=== PATIENT | female | born 1970 | race Caucasian/White ===

== ENCOUNTER 2019-02-08 08:19 | Outpatient (RCR) | payer BC, SELFPAY ==
--- NOTE | 2019-02-08 07:53 | PTOPEVAL ---
Thank you for referring this patient to [facility]. Please review, sign, date and return this plan of care BINDU. I agree with and certify that the following plan of care is medically necessary. Referring Physician Date Admitting Provider: Attending Provider: Nancy Art, Referring Provider: *KARMEN Outpatient Evaluation Start: 02/08/19 07:05 Freq: Status: Active Protocol: Document 02/08/19 07:05 J (Rec: 02/08/19 07:37 [facility] [id number]) Therapy Assessment Status Assessment Status Assessment Status Evaluation Outpatient Past Medical History Cardiovascular History Hx Hypertension Yes Musculoskeletal History Hx Rheumatoid Arthritis Yes Evaluation Information Problem Diagnosis patellafemoral syndrome L knee Onset 01/10/19 Subjective Information patient reports she has been Query Text:As Reported By Patient/ having pain fora bout 2 months Family . she reports no injury. she reports she began hearing a noise in the L knee while walking at work. she reports initially she had no pain, but has gradual developed pain along with popping in the L knee. she reports she has had an x-ray of the L knee. no MRI or injection. she reports she has increased pain and popping with walking. Prior Level of Function Comments Additional Prior Level of Function prior to a few months ago, no Comments popping or pain in the L knee. Pain Assessment Timing of Pain Assessment Timing of Pain Assessment Assessment Pain Scale Pain Scale Used Numeric (1 - 10) Self Report Pain Assessment Left Knee(s) Reported Pain Level 1 Pain Description With Movement Pain Frequency Acute,Continuous Current Pain Intensity 1 Lowest Pain Intensity 1 Greatest Pain Intensity 3 Pain Level Goal 0 Pain Aggravating Factors Walking Pain Score Pain Score 1: Self Report Lower Extremity Range of Motion General Lower Extremity Range of Motion Gross Lower Extremity Range of Motion crepitus noted in the Comments bilateral knees with arom flexiona nd extension sitting EOB. Hip Range of Motion Right Hip Medial Rotation - Active 45 Hip Lateral Rotation - Active 45 Left Hip Medial Rotation - Active 30 Hip Lateral Rotation - Active
--- NOTE | 2019-05-07 17:17 | PCPTNOTE ---
05/07/19- pt has not been to therapy since 02/21/19. pt cancelled apt after this date secondary to illness, but has not returned any calls since to reschedule. pt will be discharged on this date per evaluating therapist.-CINTHIA
== END 2019-02-21 08:54 | disposition home or self-care (01) ==
LOC: CHSPT 08:19
PROVIDERS: Visit Provider Internal Medicine
DX: M22.2X2 Patellofemoral disorders, left knee (principal); M62.9 Disorder of muscle, unspecified
CPT/HCPCS: 97014; 97110; 97161; G0283

== ENCOUNTER 2019-11-29 14:06 | Outpatient (CLI) | payer BC, SELFPAY ==
[2019-11-30 13:34] LABS: SARS-CoV-2 RNA PCR Negative
== END 2019-11-29 14:07 | disposition home or self-care (01) ==
PROVIDERS: PCP Internal Medicine; Visit Provider Internal Medicine
DX: R06.02 Shortness of breath (principal); R05 Cough; Z20.828 Contact with and (suspected) exposure to other viral communicable diseases
CPT/HCPCS: 87635; C9803; U0003

== ENCOUNTER 2020-03-04 10:29 | Outpatient (CLI) | payer BC, SELFPAY ==
--- NOTE | 2020-04-02 14:34 | P.PCNHOL_ITS ---
Holter/Event Monitor Holter/Event Monitor Date of procedure: 03/04/20 Procedure Type: Event monitor Indications: TIA Conclusion: 1. 17 days event monitor between 03/04/20-04/02/20. There are 17 tr ansmissions available for analysis. 2. Underlying rhythm is sinus rhythm. HR range 50-125 bpm; average HR 74 bpm. 3. There are occasional premature supraventricular complexes with total burden of <1%. No supraventricular tachycardia. 4. There are occasional premature ventricular complexes with total burden of 1%. No ventricular tachycardia. 5. No significant pauses greater than 2 seconds. 6. Patient reports one episode of symptoms of symptom other than listed which demonstrate sinus rhythm at 70 bpm.
== END 2020-03-04 10:30 | disposition home or self-care (01) ==
LOC: CHSLAB 10:31 → CHSCARD 10:32
PROVIDERS: PCP Internal Medicine; Visit Provider Internal Medicine
DX: G45.9 Transient cerebral ischemic attack, unspecified (principal)
CPT/HCPCS: 93270

== ENCOUNTER 2020-06-16 13:59 | Outpatient (CLI) | payer BC, SELFPAY ==
[2020-06-16 14:24] VITALS: BP 150/85; PULSE 80; RESP 14; TEMP 36.6; O2SAT 98
[2020-06-16 14:25] VITALS: BMI 35.5
--- NOTE | 2020-06-16 16:09 | PC.NURSE ---
Patient tolerated #1 of 4 weekly solumedrol IV infusions. Medication education given. No concerns voiced. Safe exit of hospital. Will return next Monday @ 0800.
== END 2020-06-16 14:00 | disposition home or self-care (01) ==
LOC: CHSTREATRM 14:02
PROVIDERS: PCP Internal Medicine; Visit Provider Internal Medicine Rheumatology
DX: M05.742 Rheumatoid arthritis with rheumatoid factor of left hand without organ or systems involvement (principal)
CPT/HCPCS: 96365; 96366; J2930; J7050

== ENCOUNTER 2020-06-23 07:58 | Outpatient (CLI) | payer BC, SELFPAY ==
[2020-06-23 08:15] VITALS: BP 135/73; PULSE 68; RESP 14; TEMP 36.3; O2SAT 98
--- NOTE | 2020-06-23 10:16 | PC.NURSE ---
Patient tolerated #2 of 4 IV solumedrol weekly IV infusion well. No concerns voiced. Safe exit of hospital. Will return next Monday.
== END 2020-06-23 07:59 | disposition home or self-care (01) ==
PROVIDERS: PCP Internal Medicine; Visit Provider Internal Medicine Rheumatology
DX: M05.742 Rheumatoid arthritis with rheumatoid factor of left hand without organ or systems involvement (principal)
CPT/HCPCS: 96365; 96366; J2930; J7050

== ENCOUNTER 2020-06-30 08:02 | Outpatient (CLI) | payer BC, SELFPAY ==
[2020-06-30 08:27] VITALS: BP 130/72; PULSE 72; RESP 14; O2SAT 97
--- NOTE | 2020-06-30 10:42 | PC.NURSE ---
Patient tolerated #3 of 4 IV Solu medrol infusion. Reports likes it to run over 2 hours. No other concerns voiced. Safe exit of hospital. Will return next . July 07, 2020.
== END 2020-06-30 08:03 | disposition home or self-care (01) ==
LOC: CHSTREATRM 08:04
PROVIDERS: PCP Internal Medicine; Visit Provider Internal Medicine Rheumatology
DX: M05.742 Rheumatoid arthritis with rheumatoid factor of left hand without organ or systems involvement (principal)
CPT/HCPCS: 96365; 96366; J2930; J7050

== ENCOUNTER 2020-07-07 08:02 | Outpatient (CLI) | payer BC, SELFPAY ==
[2020-07-07 08:15] VITALS: BP 150/81; PULSE 80; RESP 18; O2SAT 97
--- NOTE | 2020-07-07 10:07 | PC.NURSE ---
Patient tolerated #4 of 4 IV Solumedrol infusion well. No concerns voiced. Safe exit of hospital.
== END 2020-07-07 08:03 | disposition home or self-care (01) ==
LOC: CHSTREATRM 08:04
PROVIDERS: PCP Internal Medicine; Visit Provider Internal Medicine Rheumatology
DX: M05.742 Rheumatoid arthritis with rheumatoid factor of left hand without organ or systems involvement (principal)
CPT/HCPCS: 96365; 96366; J2930; J7050

== ENCOUNTER 2020-09-24 10:28 | Outpatient (CLI) | payer BC, SELFPAY ==
[2020-09-24 12:23] LABS: SARS-CoV-2 RNA PCR Negative (Negative)
== END 2020-09-24 10:29 | disposition home or self-care (01) ==
PROVIDERS: PCP Internal Medicine; Visit Provider Internal Medicine
DX: J06.9 Acute upper respiratory infection, unspecified (principal); Z20.822 Contact with and (suspected) exposure to COVID-19
CPT/HCPCS: C9803; U0003; U0005

== ENCOUNTER 2020-10-23 10:30 | Outpatient (CLI) | payer BC, SELFPAY ==
--- NOTE | ~2020-10-23 | XR_ITS ---
EXAMINATION: XR chest 2V 10/23/2020 11:34 INDICATION: Cough and shortness of breath PROCEDURE: 2 view chest COMPARISON: 04/20/2015 FINDINGS: The lungs are clear. The cardiomediastinal silhouette is within normal limits. There are no pleural effusions. There is no pneumothorax suspected. IMPRESSION: 1: NO ACUTE CARDIOPULMONARY DISEASE. Reviewed, dictated and finalized at location A.
[2020-10-23 11:45] LABS: Basophils Absolute Auto 0.11 K/mm3 (0.00-0.10); Eosinophils Absolute Auto 0.41 K/mm3 (0.02-0.50); Eosinophils Percent Auto 3.6 % (1.0-6.0); Hematocrit 40.1 % (35.0-49.0); Hemoglobin 13.5 g/dL (12.0-15.0); Immature Granulocyte Absolute 0.09 K/mm3 (0.00-0.00); Immature Granulocyte Percent A 0.8 % (0.0-0.0); Lymphocytes Absolute Auto 2.03 K/mm3 (1.10-4.50); Lymphocytes Percent Auto 17.9 % (18.0-42.0); Mean Corpuscular HGB Conc 33.7 g/dL (32.0-36.0); Mean Corpuscular Hemoglobin 29.8 pg (27.0-31.0); Mean Corpuscular Volume 88.5 fL (78.0-102.0); Mean Platelet Volume 9.9 fl (9.2-11.8); Monocytes Absolute Auto 0.72 K/mm3 (0.10-0.90); Monocytes Percent Auto 6.3 % (2.0-11.0); Neutrophils Percent Auto 70.4 % (50.0-70.0); Platelet Count Result 344 K/mm3 (150-420); Red Blood Count 4.53 M/mm3 (4.20-5.40); Red Cell Distribution Width 12.2 % (11.6-14.4); White Blood Count 11.3 K/mm3 (4.8-10.8)
[2020-10-23 11:46] LABS: Add Urine Microscopic? NO; Appearance Urine Clear (Clear); Bilirubin Urine Negative (Negative); Blood Urine Negative (Negative); Color Urine Light Yellow (Yellow); Glucose Urine UA Negative (Negative); Ketones Urine Negative (Negative); Leukocyte Esterase Ur Negative (Negative); Nitrate Urine Negative (Negative); Protein Urine Negative (Negative); Specific Grav Ur >= 1.030 (1.010-1.020); Urobilinogen Urine 0.2 mg/dL (0.2-1.0); pH Urine 5.5 (5.0-8.0)
[2020-10-23 12:03] LABS: Alanine Aminotransferase 25 U/L (14-59); Albumin Level 3.5 g/dL (3.4-5.0); Alkaline Phosphatase 118 U/L (46-116); Anion Gap 8 mmol/L (8-16); Aspartate Amino Transferase 10 U/L (15-37); Bilirubin,Total 0.4 mg/dL (0.00-1.00); Blood Urea Nitrogen 26 mg/dL (7-18); Carbon Dioxide 30 mmol/L (21-32); Chloride 103 mmol/L (98-108); Estimated Glomerular Filt Rate 45; Glucose 107 mg/dL (70-99); Osmolality Calculated 296 mOsm/kg (285-295); Potassium 3.8 mmol/L (3.5-5.1); Sodium 141 mmol/L (136-145); Total Protein 7.2 g/dL (6.4-8.2)
[2020-10-23 12:39] LABS: SARS-CoV-2 RNA PCR Negative (Negative)
== END 2020-10-23 10:31 | disposition home or self-care (01) ==
LOC: CHSLAB 10:32
PROVIDERS: PCP Internal Medicine; Visit Provider Nurse Practitioner Family
DX: D72.829 Elevated white blood cell count, unspecified (principal); R05 Cough; R06.02 Shortness of breath; Z20.822 Contact with and (suspected) exposure to COVID-19
CPT/HCPCS: 36415; 71046; 80053; 81003; 85025; 85380; 87086; C9803; U0003; U0005

== ENCOUNTER 2020-11-13 15:49 | Outpatient (CLI) | payer BC, SELFPAY ==
--- NOTE | ~2020-11-13 | CT_ITS ---
EXAMINATION: CT sinus wo con DATE: 11/13/2020 16:27 INDICATION: Left orbital and cheek pain and swelling since 11/09/2020. Chronic sinusitis. TECHNIQUE: Computed tomography (CT) of the paranasal sinuses was performed without contrast. Iterativ e reconstruction technique was employed. Exam dose: 295.93 mGy-cm total exam DLP. COMPARISON: None FINDINGS: There is prominent rightward deviation of the nasal septum. There is prominent soft tissue swelling of the middle and inferior nasal turbinates bilaterally. There is intralamellar cell of both middle nasal turbinates There are bilateral maxillary sinus septations and Danica cells. The ostiomeatal units are patent. There is normal aeration of the frontal sinuses, ethmoid air cells as well as maxillary and sphenoid sinuses. The mastoid air cells are normally developed and aerated. Middle and inner ear apparatus appear dante l. IMPRESSION: Prominent rightward deviation of nasal septum Soft tissue swelling of the nasal turbinates and intralamellar cell of both middle nasal turbinates Bilateral maxillary sinus septations and Danica cells Patent paranasal sinuses, ostiomeatal units and mastoid air cells Reviewed, dictated and finalized at Location A. Reviewed, dictated and finalized at location A. IMPRESSION: Prominent rightward deviation of nasal septum Soft tissue swelling of the nasal turbinates and intralamellar cell of both mid dle nasal turbinates Bilateral maxillary sinus septations and Danica cells Patent paranasal sinuses, ostiomeatal units and mastoid air cells
== END 2020-11-13 15:50 | disposition home or self-care (01) ==
LOC: CHSIMG 15:52
PROVIDERS: PCP Internal Medicine; Visit Provider Internal Medicine
DX: J32.9 Chronic sinusitis, unspecified (principal)
CPT/HCPCS: 70486

== ENCOUNTER 2020-12-02 17:05 | Outpatient (CLI) | payer BC, SELFPAY ==
--- NOTE | ~2020-12-02 | XR_ITS ---
EXAMINATION: XR chest 2V 12/02/2020 17:29 INDICATION: Cough for one month PROCEDURE: 2 view chest COMPARISON: Comparison to multiple prior studies sequentially, with oldest reviewed study dated 03/07. FINDINGS: The lungs are clear. The cardiomediastinal silhouette is within normal limits. There are no pleural effusions. There is no pneumothorax suspected. IMPRESSION: 1: NO ACUTE CARDIOPULMONARY DISEASE. Reviewed, dictated and finalized at location A.
[2020-12-02 17:20] LABS: Hematocrit 37.8 % (35.0-49.0); Hemoglobin 12.9 g/dL (12.0-15.0); Mean Corpuscular HGB Conc 34.1 g/dL (32.0-36.0); Mean Corpuscular Hemoglobin 29.3 pg (27.0-31.0); Mean Corpuscular Volume 85.9 fL (78.0-102.0); Mean Platelet Volume 9.6 fl (9.2-11.8); Platelet Count Result 382 K/mm3 (150-420); Red Cell Distribution Width 12.7 % (11.6-14.4)
[2020-12-02 17:40] LABS: White Blood Count 20.5 K/mm3 (4.8-10.8)
[2020-12-02 17:51] LABS: Band Neutrophils Percent 0 % (0-6); Basophils Absolute Manual 0.41 K/mm3 (0-0.1); Basophils Percent Manual 2 % (0-1); Eosinophils Percent Manual 1 % (1-6); Lymphocytes Absolute Manual 4.51 K/mm3 (1.1-4.5); Lymphocytes Percent Manual 22 % (18-44); Monocytes Absolute Manual 1.84 K/mm3 (0.1-0.90); Monocytes Percent Manual 9 % (3-9); Neutrophils Absolute Manual 13.53 K/mm3 (1.7-7.2); Neutrophils Percent Manual 66 % (46-73); Platelet Estimate Adequate (Adequate)
== END 2020-12-02 17:06 | disposition home or self-care (01) ==
LOC: CHSLAB 17:08
PROVIDERS: PCP Internal Medicine; Visit Provider Internal Medicine
DX: R05.9 Cough, unspecified (principal); R09.3 Abnormal sputum
CPT/HCPCS: 36415; 71046; 85025

== ENCOUNTER 2020-12-07 10:23 | Outpatient (CLI) | payer BC, SELFPAY | END 2020-12-07 10:24 | disposition home or self-care (01) | LOC: CHSCARD 10:27 | PROVIDERS: PCP Internal Medicine; Visit Provider Internal Medicine | DX: R05.9 Cough, unspecified (principal) | CPT/HCPCS: 94060; 94726; 94729; 95012 ==

== ENCOUNTER 2021-02-08 12:55 | Outpatient (CLI) | payer BC, SELFPAY ==
--- NOTE | 2021-02-08 13:00 | PC.NURSE ---
Pt to room 227 amb. Infusion plan of care explained. Consent read and signed. Pt has no questions or complaints. Oriented to room. Call carmona in reach. Reminded to call with needs.
[2021-02-08] MEDS: ACETAMINOPHEN 325 MG TABLET 650 MG PO (13:34)
[2021-02-08] MEDS: FAMOTIDINE 20 MG TABLET PO (13:35)
[2021-02-08] MEDS: diphenhydrAMINE HCl CAP 25 MG CAPSULE PO (13:35)
--- NOTE | 2021-02-08 14:59 | PC.NURSE ---
Pt has no complaints. Discharged to home per self.
== END 2021-02-08 12:56 | disposition home or self-care (01) ==
LOC: CHSLAB 12:58 → CHSTREATRM 13:13
PROVIDERS: PCP Internal Medicine; Visit Provider Internal Medicine
DX: U07.1 COVID-19 (principal)
CPT/HCPCS: A9270; M0245; Q0245

== ENCOUNTER 2021-06-10 11:00 | Outpatient (RCR) | payer BC, SELFPAY ==
[2021-06-10 11:07] VITALS: BMI 38.6
[2021-06-10 11:14] VITALS: BMI 38.6
== END 2021-07-30 08:51 | disposition home or self-care (01) ==
LOC: ANHDMC 11:00
PROVIDERS: PCP Internal Medicine; Visit Provider Internal Medicine
DX: E11.65 Type 2 diabetes mellitus with hyperglycemia (principal); Z71.89 Other specified counseling; Z71.3 Dietary counseling and surveillance
CPT/HCPCS: 97802; G0108

== ENCOUNTER 2022-01-04 09:57 | Emergency (ER) | payer OTHER, BC, SELFPAY ==
[2022-01-04] VITALS (27 sets, daily range): BP systolic 130–153; BP diastolic 71–97; PULSE 63–82; RESP 13–22; TEMP 35.7; O2SAT 95–100
--- NOTE | ~2022-01-04 | CT_ITS ---
EXAMINATION: CT facial & cervical spine wo DATE: 01/04/2022 10:34 INDICATION: Head injury. Syncopal episode. Patient fell on face. TECHNIQUE: Computed tomography (CT) of the facial bones and cervical spine was performed without intr avenous contrast. The dose-length product was 490.76 mGy-cm. Automated exposure control and iterative reconstruction technique were employed. COMPARISON: None FINDINGS: There are bilateral nasal fractures. There is rightward nasal septal deviation. There is mo derate soft tissue swelling overlying the nasal bones. The mandible is intact. Temporomandibular join ts are symmetric. No maxillary fracture. Pterygoid plates are intact. Zygomatic arches are normal. Cervical spine: There is straightening of cervical lordosis. There is degenerative anterolisthesis at C2-3 and retrolisthesis at C4-5 and C5-6. There is disc narrowing and endplate degenerative change a t C4-5 and C5-6. Craniovertebral junction is normal. No evidence for perched facet. There is multilev el uncinate and facet hypertrophy. Odontoid process is unremarkable. IMPRESSION: 1. Bilateral nasal fractures. 2: No acute abnormality of the cervical spine. Reviewed, dictated and finalized at location A. OM BUFFER
--- NOTE | ~2022-01-04 | XR_ITS ---
EXAMINATION: XR chest 2V 01/04/2022 10:45 INDICATION: Syncope. Vomiting and nausea. Diarrhea. PROCEDURE: 2 view chest COMPARISON: Comparison to multiple prior studies sequentially, with oldest reviewed study dated 03/30. FINDINGS: The lungs are clear. The cardiomediastinal silhouette is within normal limits. There are no pleural effusions. There is no pneumothorax suspected. IMPRESSION: 1: NO ACUTE CARDIOPULMONARY DISEASE. Reviewed, dictated and finalized at location A. NESS DEVELOPMENT PROFESSIONAL
--- NOTE | ~2022-01-04 | CT_ITS ---
EXAMINATION: CT brain wo con DATE: 01/04/2022 10:34 INDICATION: Syncopal episode. Patient fell on face. Nasal laceration. TECHNIQUE: Computed tomography (CT) of the head was performed without intravenous contrast. The mA wa s adjusted according to patient size. Iterative reconstruction technique was employed. Exam dose: 60 5.33 mGy-cm total exam DLP. COMPARISON: None FINDINGS: No intracranial mass lesion or hemorrhage or cerebrovascular accident. No midline shift or mass effect effect. Normal ventricular size. No subdural or epidural hematoma. No fracture or bone destruction of the cranial vault. The mastoid air cells and included paranasal si nuses are normally developed and aerated. IMPRESSION: No skull fracture or significant intracranial abnormality Reviewed, dictated and finalized at Location A. Reviewed, dictated and finalized at location B. OMER OPERATIONS ASSOCIATE
--- NOTE | ~2022-01-04 | CT_ITS ---
EXAMINATION: CTA chest PE abdomen pel DATE: 01/04/2022 12:57 INDICATION: Abdominal pain. TECHNIQUE: Computed tomography angiography (CTA) of the chest was performed with 100 mL Omnipaque-350 intravenous contrast timed to evaluate the pulmonary arteries. Coronal maximum intensity projection 3D-reconstructions were created by the technologist. Computed tomography (CT) of the abdomen and pelv is was performed with intravenous contrast. Automated exposure control and iterative reconstruction t echnique were employed. The dose-length product was 1609.42 mGy-cm. COMPARISON: None. FINDINGS: CTA chest: The lungs demonstrate mild atelectasis. No pleural effusion. There is a 1.4 cm nodule in r ight thyroid lobe, likely not clinically significant. The heart size is normal. No pericardial effusi on. There is no pulmonary embolus. There is moderate thoracic spondylosis. CT abdomen and pelvis: There is a 16 mm mass in left hepatic lobe with peripheral puddling of contras t, consistent with a hemangioma. The gallbladder is normal in size and demonstrates gallstones and ga llbladder wall calcifications. The spleen, pancreas, adrenal glands, and right kidney are normal. The re is a 6 mm cyst in left kidney. There are no dilated loops of bowel. The appendix is normal. There are no pathologically enlarged lymph nodes. There is no free intraperitoneal fluid. There is mild lum bar spondylosis. IMPRESSION: 1. No pulmonary embolus. 2. Cholelithiasis. Porcelain gallbladder. Reviewed, dictated and finalized at location A. HANDISE PROCESSOR
--- NOTE | 2022-01-04 10:11 | ECG_ITS ---
Measurements Intervals [employer] Rate: 66 P: 52 AK: 173 QRS: 13 QRSD: 92 T: 48 QT: 444 QTc: 468 Interpretive Statements SINUS RHYTHM NORMAL ECG NO PREVIOUS ECG AVAILABLE FOR COMPARISON Electronically Signed On 01-04-2022 10:35:33 [employer] by Maurisio Henriquez D.O.
--- NOTE | 2022-01-04 10:46 | ED.SYNCOPE ---
HPI - Syncope General Chief Complaint: Syncope Stated Complaint: vomiting Time Seen by Provider: 01/04/22 10:15 Source: patient and EMS Mode of arrival: EMS Limitations: other (patient does not fully remember incident) History of Present Illness HPI narrative: This is a 51-year-old female that presents to the emergency department after syncopal episode today with head injury. Reports she was feeling ill with a diarrheal illness last couple of days. Reports today at work she had just use the restroom. She walked back to her desk and started to feel lightheaded. Reports she sat down at her desk and passed out. She is unsure what she hit her head on. Does report a witnessed brief loss of consciousness. Reports a laceration to her nose and nasal pain. Denies any other injuries due to the fall. Reports an episode of vomiting. Reports she does have longstanding history of syncopal episodes. She follows with a supervisor long goods for this, Dr. Lawson. Denies visual changes, chest pain, shortness of breath, palpitations, numbness or weakness. Related Data Home Medications Medication Instructions Recorded Confirmed amlodipine 5 mg tablet 5 mg PO DAILY 06/16/20 06/16/20 losartan 100 1 tablet PO DAILY 06/16/20 06/16/20 mg-hydrochlorothiazide 25 mg tablet meloxicam 15 mg tablet 15 mg PO DAILY 06/16/20 06/16/20 metoprolol succinate 50 mg 50 mg PO DAILY 06/16/20 06/16/20 tablet,extended release 24 hr Allergies Allergy/AdvReac Type Severity Reaction Status Date / Time Sulfa (Sulfonamide Allergy Verified 07/29/11 07:14 Antibiotics) Review of Systems Review of Systems: CONSTITUTIONAL: Denies fever EYES: Denies visual changes CARDIOVASCULAR: Denies chest pain, palpitations, or edema. RESPIRATORY: Denies dyspnea. GASTROINTESTINAL: Reports nausea, vomiting and diarrhea. Denies abdominal pain MUSCULOSKELETAL: Reports back pain NEUROLOGIC: Reports headache. Denies numbness, or weakness. All systems reviewed & are unremarkable except as noted in HPI and below PMFSH Past Medical History Medical History (Updated 01/04/22 @ 14:59 by Samanta Salas PA-C) History of diabetes mellitus History of hypertension History of rheumatoid arthritis Social History Social History (Updated 01/04/22 @ 10:52 by Samanta Salas PA-C) Smoking status: Never smoker Alcohol intake: never Substance use: never Spiritual care concerns: No Exam Narrative: GENERAL: Well-appearing, well-nourished, and in no acute distress. HEAD: Normocephalic. 2 cm linear laceration into subcutaneous tissue over the nose EYES: PERRLA and EOMI. ENT: Dried blood in the nares. Mucous membranes moist. Oropharynx without tonsillar hypertrophy exudate or other lesions. Bilateral TMs pearly morales non-bulging NECK: Supple. No adenopathy or masses. CHEST: Clear to auscultation. No respiratory distress. No wheezes rales or rhonchi HEART: Regular rate and rhythm. No murmur heard. Normal peripheral pulses. ABDOMEN: Soft, nontender, nondistended, normal active bowel sounds. EXTREMITIES: Normal range of motion. No edema or obvious deformity. Strength equal in bilateral upper and lower extremities (5/5) SKIN: Warm, dry, no rash. NEURO: No focal deficits. Alert and oriented x3. Cranial nerves II through XII grossly intact PSYCH: Normal mood and affect Course Vital Signs Vital signs: Vital Signs Temperature 96.3 F L 01/04/22 10:00 Pulse Rate 70 01/04/22 10:00 Respiratory Rate 20 01/04/22 10:00 Blood Pressure 153/97 H 01/04/22 10:00 Pulse Oximetry 96 01/04/22 10:00 Oxygen Delivery Room Air 01/04/22 10:00 Temperature 96.3 F L 01/04/22 10:00 Pulse Rate 68 01/04/22 14:31 Respiratory Rate 13 01/04/22 14:31 Blood Pressure 141/88 H 01/04/22 14:31 Pulse Oximetry 98 01/04/22 14:31 Oxygen Delivery Room Air 01/04/22 10:00 Procedures Laceration Laceration 1: Date: 01/04/22 Time: 15:26 Site: face
[2022-01-04 11:45] LABS: Basophils Percent Auto 0.4 % (0.2-1.2); Eosinophils Absolute Auto 0.1 K/mm3 (0-0.3); Eosinophils Percent Auto 1.1 % (0-4.4); Hemoglobin 14.7 g/dL (12.0-15.0); Immature Granulocyte Absolute 0.05 K/mm3 (0.00-0.031); Immature Granulocyte Percent A 0.6 % (0-0.5); Lymphocytes Absolute Auto 1.08 K/mm3 (0.9-3.2); Lymphocytes Percent Auto 12.8 % (18.3-44.2); Mean Corpuscular HGB Conc 33.4 g/dl (32-36); Mean Corpuscular Hemoglobin 28.7 pg (26-34); Mean Corpuscular Volume 85.8 fl (80-100); Mean Platelet Volume 10.5 fl (7.4-10.4); Monocytes Absolute Auto 0.5 K/mm3 (0.1-0.6); Monocytes Percent Auto 5.7 % (2.6-8.5); Neutrophils Absolute Auto 6.7 K/mm3 (1.3-6.7); Neutrophils Percent Auto 79.4 % (45.5-73.1); Platelet Count Result 212 k/mm3 (150-375); Red Blood Count 5.13 M/mm3 (4.2-5.4); Red Cell Distribution Width 13.6 % (11.5-14.5); White Blood Count 8.5 K/mm3 (4.5-10.0)
[2022-01-04 11:56] LABS: Influenza A QL RT-PCR Positive (Negative); Influenza B QL RT-PCR Negative (Negative); SARS-CoV-2 RNA PCR Positive
[2022-01-04 12:00] LABS: Alanine Aminotransferase 45 U/L (6-35); Albumin Level 4.2 g/dL (3.5-5.1); Alkaline Phosphatase 108 U/L (38-126); Anion Gap 11 mmol/L (8-16); Aspartate Amino Transferase 43 U/L (14-36); Bilirubin,Total 0.5 mg/dL (0.2-1.3); Blood Urea Nitrogen 15 mg/dL (7-17); Calcium 8.2 mg/dL (8.4-10.2); Carbon Dioxide 25 mmol/L (22-30); Chloride 99 mmol/L (98-107); Estimated CRCL calculation 59 ml/min; Estimated Glomerular Filt Rate 53; Glucose 144 mg/dL (65-110); Potassium 3.7 mmol/L (3.4-5.0); Sodium 135 mmol/L (137-145)
[2022-01-04 12:11] LABS: Troponin I < 0.012 ng/mL (0.000-0.034)
[2022-01-04 12:12] LABS: D Dimer 0.56 ug/mL (<0.48)
[2022-01-04] MEDS: SODIUM CHLORIDE 0.9% IV 1,000 ML 999 ML IV CONT (12:18)
[2022-01-04] MEDS: ONDANSETRON INJ 4 MG/2 ML VIAL IV PUSH (12:19)
[2022-01-04] MEDS: KETOROLAC 15 MG/ML VIAL (*BKC) IV PUSH (12:19)
[2022-01-04 12:25] LABS: Appearance Urine Slightly Cloudy (Clear); Bilirubin Urine Negative (Negative); Blood Urine Negative (Negative); Color Urine Yellow (Yellow); Glucose Urine UA Negative (Negative); Ketones Urine Negative (Negative); Leukocyte Esterase Ur Negative LEU/UL (Negative); Nitrate Urine Negative (Negative); Protein Urine Negative (Negative); Specific Grav Ur 1.025 (1.001-1.035); Urobilinogen Urine 0.2 mg/dL (<2.0)
[2022-01-04 12:27] LABS: Bacteria Urine 2+ /hpf; Mucus Urine Rare /lpf; RBC Urine 0-2 /hpf (0-2); Squamous Epithelial Cell Urine Few /hpf (Few)
[2022-01-04 12:28] LABS: Add Urine Microscopic? YES
[2022-01-04] MEDS: TETANUS,DIPHTHERIA,AC PERTUSSIS ADULT (0.5 ML) BOOSTRIX IM (14:48)
== END 2022-01-04 15:50 | disposition home or self-care (01) ==
PROVIDERS: Physician Assistant; Emergency Provider Emergency Medicine; PCP Internal Medicine
DX: R55 Syncope and collapse (principal); S02.2XXA Fracture of nasal bones, initial encounter for closed fracture; S01.21XA Laceration without foreign body of nose, initial encounter; U07.1 COVID-19; J10.1 Influenza due to other identified influenza virus with other respiratory manifestations; Z23 Encounter for immunization; K80.20 Calculus of gallbladder without cholecystitis without obstruction; K82.8 Other specified diseases of gallbladder; W18.39XA Other fall on same level, initial encounter
CPT/HCPCS: 12011; 36415; 70450; 70486; 71046; 71275; 72125; 74177; 80053; 81001; 81025; 84484; 85025; 85380; 87636; 90471; 90715; 93005; 96361; 96365; 96375; 99284; J0131; J1885; J2405; J7030; Q9967

== ENCOUNTER 2024-01-08 14:19 | Outpatient (CLI) | payer BC, SELFPAY ==
--- NOTE | ~2024-01-08 | US_ITS ---
EXAMINATION: US thyroid DATE: 01/08/2024 14:42 INDICATION: Right thyroid nodule. TECHNIQUE: Multiple ultrasound images of the thyroid were obtained. COMPARISON: None. FINDINGS: The right thyroid lobe measures 4.1 x 1.3 x 1.5 cm. The left thyroid lobe measures 3.9 x 1.6 x 1.3 c m. In the left thyroid lobe, there is a 7 mm solid, hypoechoic, wider than tall nodule with smooth m argin without echogenic foci (TI-RADS TR4). In the right thyroid lobe, there is a 9 mm, solid, hypoec hoic, wider than tall nodule with smooth margin without echogenic foci (TR4). In the right thyroid is thmus, there is a 14 mm solid, isoechoic, wider than tall nodule with ill-defined margin without echo genic foci (TR3). IMPRESSION: 1. Multinodular goiter, likely not clinically significant. No follow-up is needed. Reviewed, dictated and finalized at location A. P RANCHER IMPRESSION: 1. Multinodular goiter, likely not clinically significant. No follow-up is need ed.
== END 2024-01-08 14:20 | disposition home or self-care (01) ==
LOC: MICIMG 14:23
PROVIDERS: PCP Internal Medicine; Visit Provider Internal Medicine
DX: E04.2 Nontoxic multinodular goiter (principal)
CPT/HCPCS: 76536

== ENCOUNTER 2024-11-15 12:57 | Outpatient (CLI) | payer OTHER, BC, SELFPAY ==
--- NOTE | ~2024-11-15 | XR_ITS ---
EXAMINATION: XR chest 2V, 11/15/2024 13:00 CDT HISTORY: SHORTNESS OF BREATH COMPARISON: No comparisons available. Technique: 2 views obtained. Findings: The lungs are clear, no effusion. No pneumothorax. Heart is normal size. Mediastinal and hilar contours are within normal limits. Bony thorax no acute abnormality. Impression: No acute cardiopulmonary abnormality. Reviewed, dictated and finalized at location P. Impression: No acute cardiopulmonary abnormality.
== END 2024-11-15 12:58 | disposition home or self-care (01) ==
PROVIDERS: PCP Internal Medicine; Visit Provider Internal Medicine Cardiovascular Disease
DX: R06.02 Shortness of breath (principal)
CPT/HCPCS: 71046

== ENCOUNTER 2024-11-21 08:11 | Outpatient (CLI) | payer OTHER, BC, SELFPAY ==
--- OUTSIDE RECORDS SUMMARY | 2024-11-21 08:24 | XMS_ITS | Encounter Summary ---
Author Organization [facility] Address 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
--- OUTSIDE RECORDS SUMMARY | 2024-11-21 08:24 | XMS_ITS | Encounter Summary ---
Author Organization [facility] Address 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
--- OUTSIDE RECORDS SUMMARY | 2024-11-21 08:24 | XMS_ITS | Encounter Summary ---
Author Organization [facility] Address [address] [place] [address] Care Team Providers Care Complaint Evaluation Officer Name Role Phone Unavailable Primary Care Provider Unavailabl e Encounter Details Date Type Department Care Team (Late st Contact Info) Description 04/20/1999 Outpatient Historical HIS MD Jose PRITCHARD, Keith Conroy MD [facility] S [facility] [address] [place] [address] Social History Tobacco Use Types Packs/Day Years Used Date Smoking Tobacco: Never Assessed Comments Unknown Sex and Gender Information Value Date Recorded Sex Assigned at Not on file Legal Sex Female 3:09 AM ROADSIDE MECHANIC Gender Identity Not on file Sexual Orientation Not on file documented as of this encounter Plan of Treatment Not on file documented as of this encounter Visit Diagnoses Not on filedocumented in this encounter
--- OUTSIDE RECORDS SUMMARY | 2024-11-21 08:24 | XMS_ITS | Encounter Summary ---
Author Organization [facility] Address 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
--- OUTSIDE RECORDS SUMMARY | 2024-11-21 08:24 | XMS_ITS | Encounter Summary ---
Author Organization [facility] Address [address] [place] [address] Care Team Providers Care Electric Locomotive Crane Operator Name Role Phone Unavailable Primary Care Provider Unavailabl e Encounter Details Date Type Department Care Team (Late st Contact Info) Description 01/26/1999 Outpatient Historical HIS MD Jose PRITCHARD, Keith Conroy MD [facility] S [facility] [address] [place] [address] Social History Tobacco Use Types Packs/Day Years Used Date Smoking Tobacco: Never Assessed Comments Unknown Sex and Gender Information Value Date Recorded Sex Assigned at Not on file Legal Sex Female 3:09 AM CUSTOM SEAMSTRESS Gender Identity Not on file Sexual Orientation Not on file documented as of this encounter Plan of Treatment Not on file documented as of this encounter Visit Diagnoses Not on filedocumented in this encounter
--- OUTSIDE RECORDS SUMMARY | 2024-11-21 08:24 | XMS_ITS | Encounter Summary ---
Author Organization [facility] Address [address] [place] [address] Care Team Providers Care Collision Worker Name Role Phone Unavailable Primary Care Provider Unavailabl e Encounter Details Date Type Department Care Team (Late st Contact Info) Description 03/05/1999 Outpatient Historical HIS MD Jose PRITCHARD, Kieth Conroy MD [facility] S [facility] [address] [place] [address] Social History Tobacco Use Types Packs/Day Years Used Date Smoking Tobacco: Never Assessed Comments Unknown Sex and Gender Information Value Date Recorded Sex Assigned at Not on file Legal Sex Female 3:09 AM BOOKING AGENT Gender Identity Not on file Sexual Orientation Not on file documented as of this encounter Plan of Treatment Not on file documented as of this encounter Visit Diagnoses Not on filedocumented in this encounter
--- OUTSIDE RECORDS SUMMARY | 2024-11-21 08:24 | XMS_ITS | Encounter Summary ---
Author Organization [facility] Address [address] [place] [address] Care Team Providers Care Casing Finisher And Stuffer Name Role Phone Unavailable Primary Care Provider Unavailabl e Encounter Details Date Type Department Care Team (Late st Contact Info) Description 12/25/1998 Outpatient Historical HIS MD Jose PRITCHARD, Keith Conroy MD [facility] S [facility] [address] [place] [address] Social History Tobacco Use Types Packs/Day Years Used Date Smoking Tobacco: Never Assessed Comments Unknown Sex and Gender Information Value Date Recorded Sex Assigned at Not on file Legal Sex Female 3:09 AM PRODUCT SUPPORT REPRESENTATIVE Gender Identity Not on file Sexual Orientation Not on file documented as of this encounter Plan of Treatment Not on file documented as of this encounter Visit Diagnoses Not on filedocumented in this encounter
--- OUTSIDE RECORDS SUMMARY | 2024-11-21 08:24 | XMS_ITS | Encounter Summary ---
Author Organization [facility] Address [address] [place] [address] Care Team Providers Care Animal Care Service Worker Name Role Phone Unavailable Primary Care Provider Unavailabl e Encounter Details Date Type Department Care Team (Late st Contact Info) Description 12/02/1998 Outpatient Historical HIS MD Jose PRITCHARD, Keith Conroy MD [facility] S [facility] [address] [place] [address] Social History Tobacco Use Types Packs/Day Years Used Date Smoking Tobacco: Never Assessed Comments Unknown Sex and Gender Information Value Date Recorded Sex Assigned at Not on file Legal Sex Female 3:09 AM LIME KILN WORKER HELPER Gender Identity Not on file Sexual Orientation Not on file documented as of this encounter Plan of Treatment Not on file documented as of this encounter Visit Diagnoses Not on filedocumented in this encounter
--- OUTSIDE RECORDS SUMMARY | 2024-11-21 08:24 | XMS_ITS | Encounter Summary ---
Author Organization [facility] Address [address] [place] [address] Care Team Providers Care Admissions Rn Name Role Phone Unavailable Primary Care Provider Unavailabl e Encounter Details Date Type Department Care Team (Late st Contact Info) Description 02/11/1999 Outpatient Historical HIS MD Jose PRITCHARD, Keith Conroy MD [facility] S [facility] [address] [place] [address] Social History Tobacco Use Types Packs/Day Years Used Date Smoking Tobacco: Never Assessed Comments Unknown Sex and Gender Information Value Date Recorded Sex Assigned at Not on file Legal Sex Female 3:09 AM DIRECTOR OF CRITICAL CARE Gender Identity Not on file Sexual Orientation Not on file documented as of this encounter Plan of Treatment Not on file documented as of this encounter Visit Diagnoses Not on filedocumented in this encounter
--- OUTSIDE RECORDS SUMMARY | 2024-11-21 08:24 | XMS_ITS | Encounter Summary ---
Author Organization [facility] Address [address] [place] [address] Care Team Providers Care Pharmacy Associate Name Role Phone Unavailable Primary Care Provider Unavailabl e Encounter Details Date Type Department Care Team (Late st Contact Info) Description 03/19/1999 Outpatient Historical HIS MD Jose PRITCHARD, Keith Conroy MD [facility] S [facility] [address] [place] [address] Social History Tobacco Use Types Packs/Day Years Used Date Smoking Tobacco: Never Assessed Comments Unknown Sex and Gender Information Value Date Recorded Sex Assigned at Not on file Legal Sex Female 3:09 AM SECURITY SERGEANT Gender Identity Not on file Sexual Orientation Not on file documented as of this encounter Plan of Treatment Not on file documented as of this encounter Visit Diagnoses Not on filedocumented in this encounter
--- OUTSIDE RECORDS SUMMARY | 2024-11-21 08:24 | XMS_ITS | Encounter Summary ---
Author Organization [facility] Address [address] [place] [address] Care Team Providers Care Surveillance Observer Name Role Phone Unavailable Primary Care Provider Unavailabl e Encounter Details Date Type Department Care Team (Late st Contact Info) Description 05/07/1999 Outpatient Historical HIS MD Jose PRITCHARD, Keith Conroy MD [facility] S [facility] [address] [place] [address] Social History Tobacco Use Types Packs/Day Years Used Date Smoking Tobacco: Never Assessed Comments Unknown Sex and Gender Information Value Date Recorded Sex Assigned at Not on file Legal Sex Female 3:09 AM MARINE PILOT Gender Identity Not on file Sexual Orientation Not on file documented as of this encounter Plan of Treatment Not on file documented as of this encounter Visit Diagnoses Not on filedocumented in this encounter
--- OUTSIDE RECORDS SUMMARY | 2024-11-21 08:24 | XMS_ITS | Encounter Summary ---
Author Organization [facility] Address [address] [place] [address] Care Team Providers Care Corporate Specialist Name Role Phone Unavailable Primary Care Provider Unavailabl e Encounter Details Date Type Department Care Team (Late st Contact Info) Description 12/03/1998 Outpatient Historical HIS MD Jose PRITCHARD, Keith Conroy MD [facility] S [facility] [address] [place] [address] Social History Tobacco Use Types Packs/Day Years Used Date Smoking Tobacco: Never Assessed Comments Unknown Sex and Gender Information Value Date Recorded Sex Assigned at Not on file Legal Sex Female 3:09 AM PACKING SHED SUPERVISOR Gender Identity Not on file Sexual Orientation Not on file documented as of this encounter Plan of Treatment Not on file documented as of this encounter Visit Diagnoses Not on filedocumented in this encounter
--- OUTSIDE RECORDS SUMMARY | 2024-11-21 08:24 | XMS_ITS | Encounter Summary ---
Author Organization [facility] Address [address] [place] [address] Care Team Providers Care Land Manager Name Role Phone Unavailable Primary Care Provider Unavailabl e Encounter Details Date Type Department Care Team (Late st Contact Info) Description 12/18/1998 Outpatient Historical HIS MD Jose PRITCHARD, Keith Conroy MD [facility] S [facility] [address] [place] [address] Social History Tobacco Use Types Packs/Day Years Used Date Smoking Tobacco: Never Assessed Comments Unknown Sex and Gender Information Value Date Recorded Sex Assigned at Not on file Legal Sex Female 3:09 AM CLINICAL PHARMACY COORDINATOR Gender Identity Not on file Sexual Orientation Not on file documented as of this encounter Plan of Treatment Not on file documented as of this encounter Visit Diagnoses Not on filedocumented in this encounter
--- OUTSIDE RECORDS SUMMARY | 2024-11-21 08:24 | XMS_ITS | Encounter Summary ---
Author Organization [facility] Address [address] [place] [address] Care Team Providers Care Stiff Leg Derrick Operator Name Role Phone Unavailable Primary Care Provider Unavailabl e Encounter Details Date Type Department Care Team (Late st Contact Info) Description 05/11/1999 Outpatient Historical HIS MD Jose PRITCHARD, Keith Conroy MD [facility] S [facility] [address] [place] [address] Social History Tobacco Use Types Packs/Day Years Used Date Smoking Tobacco: Never Assessed Comments Unknown Sex and Gender Information Value Date Recorded Sex Assigned at Not on file Legal Sex Female 3:09 AM AUTOMOTIVE PARTS COUNTER ASSOCIATE Gender Identity Not on file Sexual Orientation Not on file documented as of this encounter Plan of Treatment Not on file documented as of this encounter Visit Diagnoses Not on filedocumented in this encounter
--- OUTSIDE RECORDS SUMMARY | 2024-11-21 08:24 | XMS_ITS | Encounter Summary ---
Author Organization [facility] Address [address] [place] [address] Care Team Providers Care High School Band Director Name Role Phone Unavailable Primary Care Provider Unavailabl e Encounter Details Date Type Department Care Team (Late st Contact Info) Description 11/24/1998 Outpatient Historical HIS MD Jose PRITCHARD, Keith Conroy MD [facility] S [facility] [address] [place] [address] Social History Tobacco Use Types Packs/Day Years Used Date Smoking Tobacco: Never Assessed Comments Unknown Sex and Gender Information Value Date Recorded Sex Assigned at Not on file Legal Sex Female 3:09 AM CIVIL ENGINEERING DRAFTER Gender Identity Not on file Sexual Orientation Not on file documented as of this encounter Plan of Treatment Not on file documented as of this encounter Visit Diagnoses Not on filedocumented in this encounter
--- OUTSIDE RECORDS SUMMARY | 2024-11-21 08:24 | XMS_ITS | Encounter Summary ---
Author Organization [facility] Address [address] [place] [address] Care Team Providers Care Jewelry Manager Name Role Phone Unavailable Primary Care Provider Unavailabl e Encounter Details Date Type Department Care Team (Late st Contact Info) Description 05/11/1999 Outpatient Historical HIS MD Jose PRITCHARD, Keith Conroy MD [facility] S [facility] [address] [place] [address] Social History Tobacco Use Types Packs/Day Years Used Date Smoking Tobacco: Never Assessed Comments Unknown Sex and Gender Information Value Date Recorded Sex Assigned at Not on file Legal Sex Female 3:09 AM CONSULTING SENIOR PRACTICE DIRECTOR Gender Identity Not on file Sexual Orientation Not on file documented as of this encounter Plan of Treatment Not on file documented as of this encounter Visit Diagnoses Not on filedocumented in this encounter
--- OUTSIDE RECORDS SUMMARY | 2024-11-21 08:24 | XMS_ITS | Encounter Summary ---
Author Organization [facility] Address [address] [place] [address] Care Team Providers Care Drying Room Supervisor Name Role Phone Unavailable Primary Care Provider Unavailabl e Encounter Details Date Type Department Care Team (Late st Contact Info) Description 11/30/1998 Outpatient Historical HIS MD Jose PRITCHARD, Keith Conroy MD [facility] S [facility] [address] [place] [address] Social History Tobacco Use Types Packs/Day Years Used Date Smoking Tobacco: Never Assessed Comments Unknown Sex and Gender Information Value Date Recorded Sex Assigned at Not on file Legal Sex Female 3:09 AM HEAD CHARGER Gender Identity Not on file Sexual Orientation Not on file documented as of this encounter Plan of Treatment Not on file documented as of this encounter Visit Diagnoses Not on filedocumented in this encounter
--- OUTSIDE RECORDS SUMMARY | 2024-11-21 08:24 | XMS_ITS | Encounter Summary ---
Author Organization [facility] Address [address] [place] [address] Care Team Providers Care Regional Hr Manager Name Role Phone Unavailable Primary Care Provider Unavailabl e Encounter Details Date Type Department Care Team (Late st Contact Info) Description 05/06/1999 Outpatient Historical HIS MD Jose PRITCHARD, Keith Conroy MD [facility] S [facility] [address] [place] [address] Social History Tobacco Use Types Packs/Day Years Used Date Smoking Tobacco: Never Assessed Comments Unknown Sex and Gender Information Value Date Recorded Sex Assigned at Not on file Legal Sex Female 3:09 AM HUNTING SALES ASSOCIATE Gender Identity Not on file Sexual Orientation Not on file documented as of this encounter Plan of Treatment Not on file documented as of this encounter Visit Diagnoses Not on filedocumented in this encounter
--- OUTSIDE RECORDS SUMMARY | 2024-11-21 08:24 | XMS_ITS | Encounter Summary ---
Author Organization [facility] Address [address] [place] [address] Care Team Providers Care Technical Support Director Name Role Phone Unavailable Primary Care Provider Unavailabl e Encounter Details Date Type Department Care Team (Late st Contact Info) Description 12/29/1998 Outpatient Historical HIS MD Jose PRITCHARD, Keith Conroy MD [facility] S [facility] [address] [place] [address] Social History Tobacco Use Types Packs/Day Years Used Date Smoking Tobacco: Never Assessed Comments Unknown Sex and Gender Information Value Date Recorded Sex Assigned at Not on file Legal Sex Female 3:09 AM PRE SALES ARCHITECT Gender Identity Not on file Sexual Orientation Not on file documented as of this encounter Plan of Treatment Not on file documented as of this encounter Visit Diagnoses Not on filedocumented in this encounter
--- OUTSIDE RECORDS SUMMARY | 2024-11-21 08:24 | XMS_ITS | Encounter Summary ---
Author Organization [facility] Address [address] [place] [address] Care Team Providers Care Neon Electrician Name Role Phone Unavailable Primary Care Provider Unavailabl e Encounter Details Date Type Department Care Team (Late st Contact Info) Description 12/26/1998 Outpatient Historical HIS MD Jose PRITCHARD, Keith Conroy MD [facility] S [facility] [address] [place] [address] Social History Tobacco Use Types Packs/Day Years Used Date Smoking Tobacco: Never Assessed Comments Unknown Sex and Gender Information Value Date Recorded Sex Assigned at Not on file Legal Sex Female 3:09 AM SEISMIC SURVEY ASSISTANT Gender Identity Not on file Sexual Orientation Not on file documented as of this encounter Plan of Treatment Not on file documented as of this encounter Visit Diagnoses Not on filedocumented in this encounter
--- OUTSIDE RECORDS SUMMARY | 2024-11-21 08:25 | XMS_ITS | Encounter Summary ---
Author Organization [facility] Address [address] [place] [address] Care Team Providers Care Charge Histotechnologist Name Role Phone Unavailable Primary Care Provider Unavailabl e Encounter Details Date Type Department Care Team (Late st Contact Info) Description 07/22/1999 Outpatient Historical HIS MD Jose PRITCHARD, Keith Conroy MD [facility] S [facility] [address] [place] [address] Social History Tobacco Use Types Packs/Day Years Used Date Smoking Tobacco: Never Assessed Comments Unknown Sex and Gender Information Value Date Recorded Sex Assigned at Not on file Legal Sex Female 3:09 AM SENIOR MICROSOFT CONSULTANT Gender Identity Not on file Sexual Orientation Not on file documented as of this encounter Plan of Treatment Not on file documented as of this encounter Visit Diagnoses Not on filedocumented in this encounter
--- OUTSIDE RECORDS SUMMARY | 2024-11-21 08:25 | XMS_ITS | Encounter Summary ---
Author Organization [facility] Address [address] [place] [address] Care Team Providers Care Repair Tech Name Role Phone Unavailable Primary Care Provider Unavailabl e Encounter Details Date Type Department Care Team (Late st Contact Info) Description 03/28/1998 Outpatient Historical HIS MD Jose PRITCHARD, Keith Conroy MD [facility] S [facility] [address] [place] [address] Social History Tobacco Use Types Packs/Day Years Used Date Smoking Tobacco: Never Assessed Comments Unknown Sex and Gender Information Value Date Recorded Sex Assigned at Not on file Legal Sex Female 3:09 AM DIGITAL PRODUCTION MANAGER Gender Identity Not on file Sexual Orientation Not on file documented as of this encounter Plan of Treatment Not on file documented as of this encounter Visit Diagnoses Not on filedocumented in this encounter
--- OUTSIDE RECORDS SUMMARY | 2024-11-21 08:25 | XMS_ITS | Encounter Summary ---
Author Organization [facility] Address [facility] [place] [address] Care Team Providers Care Convenience Store Manager Name Role Phone Nathalia Tinsley MD Primary Care Provider [phone] Encounter Details Date Type Department Care Team (Late st Contact Info) Description 11/09/2022 Lab Requisition [facility] [address] [facility] [place] [address] Lois Soriano MD [address] [facility] [address] [place] [address] Social History Tobacco Use Types Packs/Day Years Used Date Smoking Tobacco: Never Smokeless Tobacco: Never Alcohol Use Standard Drinks/Week Comments Never 0 (1 standard drink = 0.6 oz pur e alcohol) AUDIT-C Answer Date Recorded Q1: How often do you have a drink containing alcohol? Never 09/07/2022 Q2: How many drinks containi ng alcohol do you have on a typical day when you are drinking? Patient does not drink Frequency of Binge Drinking Not on file 03/2022 Comments No Sex and Gender Information Value Date Recorded Sex Assigned at Not on file Legal Sex Female 6:20 PM RADIO INTERFERENCE INVESTIGATOR Gender Identity Not on file Sexual Orientation Not on file documented as of this encounter Functional Status * Is person deaf or have serious hearing difficulty? Answer Date of Assessment Author No 09/07/2022 12:35 PM CDT Lorrie Recio i, JUANI * Is person blind or have serious difficulty seeing? Answer Date of Assessment Author No 09/07/2022 12:35 PM TIGISTT Lorrie Recio i, RN * Does person have serious difficulty walking/climbing stairs? Answer Date of Assessment Author No 09/07/2022 12:35 PM CDT Lorrie Recio i, RN * Does person have difficulty dressing/bathing? Answer Date of Assessment Author No 09/07/2022 12:35 PM CDT Lorrie Recio i, RN * Does person have difficulty doing errands alone? Answer Date of Assessment Author No 09/07/2022 12:35 PM CDT Lorrie Recio i, RN documented as of this encounter Mental Status * Does person have difficulty concentrating/remembering/making decisions? Answer Entry Date Author No 09/07/2022 12:35 PM CDT Lorrie Recio i, RN documented in this encounter Plan of Treatment Not on file documented as of this encounter Procedures Procedure Name Priority Date/Time Associated Diagnosis Comments DERMATOPATHOLOGY Routine 11/09/2022 9:43 AM CDT documented in this encounter Results * DERMATOPATHOLOGY (11/09/2022 9:43 AM CDT) Case Report Dermatopathology Report Case: [id number] Authorizing Provider: Lois Soriano MD Collected: 11/09/2022 09:43 AM Ordering Location: [facility] DermPath Lab Received: 11/10/2022 09:52 AM Pathologist: Cate Soares MD Specimen: Skin, left deltoid 1:10 PM CDT DERMATOPATHOLOGY LABORATORY Final Diagnosis Specimen A. SKIN, left deltoid: DERMATOFIBROMA (D23.9) 1:10 PM CDT DERMATOPATHOLOGY LABORATORY at 1310 CDT Clinical History R/O Atypia 1:10 PM CDT DERMATOPATHOLOGY LABORATORY Gross Description Specimen A: Received is one formalin filled container labeled with the patient's name and designated left deltoid. The specimen consists of a shave biopsy measuring 8x6x1 mm. Jar 0. 1:10 PM CDT DERMATOPATHOLOGY LABORATORY Microscopic Description Specimen A. SKIN, left deltoid: There is epidermal hyperplasia. Within the dermis, there are fibrohistiocytic cells in haphazard array among coarse collagen bundles. 3 1:10 PM CDT DERMATOPATHOLOGY LABORATORY Disclaimer An external and internal positive and negative controls are appropriate for the histochemical, immunohistochemical and immunofluorescence stain(s) in this case (if any), except where stated explicitly. The performance characteristics of the stain(s) cited in this report were developed and its performance characteristic determined by the Dermatopathology Laboratory at [facility], directed by Dr. Madie Sanchez. These tests need not be, and therefore are not, approved by the [place] Food and Drug Administration. The tests are used for clinical purposes. Billing Codes Specimen Charges Stain Charges 57381 1 3 1:10 PM CDT DERMATOPATHOLOGY LABORATORY Embedded Images 3 1:10 PM CDT DERMATOPATHOLOGY LABORATORY Pathology/Cytolo gy TISSUE SPECIMEN FROM SKIN / Unknown 11/09/2022 9:43 AM CDT 11/10/2022 9:52 AM CDT Lois Soriano MD LAB - PATHOLOGY/CYTOLOGY OR DERABLES Final Result DERMATOPATHOLOGY LABORATORY [facility] - Department of Dermatology [facility] [address] [place] [address], [address] [phone] documented in this encounter Visit Diagnoses Not on filedocumented in this encounter Care Teams Convenience Store Manager Relationship Specialty Start Date End Date Nathalia Tinsley MD [address] [place] [id number] PCP - General 01/21/22 documented as of this encounter
--- OUTSIDE RECORDS SUMMARY | 2024-11-21 08:25 | XMS_ITS | Clinical Summary ---
Author Organization [facility] Address [address] Crystaln: Epic Prelude ADT [place] [address] Care Team Providers Care Negotiator Sales Name Role Phone Unavailable Primary Care Provider Unavailabl e Social History Tobacco Use Types Packs/Day Years Used Date Smoking Tobacco: Never Assessed Comments Unknown Sex and Gender Information Value Date Recorded Sex Assigned at Not on file Legal Sex Female 3:09 AM FIELD MARKETING COORDINATOR Gender Identity Not on file Sexual Orientation Not on file Plan of Treatment Health Maintenance Due Date Last Done Comments DTAP/TDAP/TD VACCINES (1 - Tdap) 1990 HEPATITIS B VACCINES (1 of 3 - 19+ 3-dose series) 01/06 HPV/Cotest (21-29) 01/17/1992 CERVICAL CANCER SCREENING 2001 HPV/Cotest (30-65) 2001 PAP SMEAR 2001 BREAST CANCER SCREENING 2011 COLORECTAL SCREENING 01/17/2016 Colorectal Cancer Screening 01/17/2016 FIT-DNA Q 3 years 01/17/2016 FIT/FOBT Q 1 year 01/17/2016 Flex Sig/CT Colonography Q 5 years 01/17/2016 ZOSTER VACCINE (1 of 2) 2021 INFLUENZA VACCINE (#1) 2024
--- OUTSIDE RECORDS SUMMARY | 2024-11-21 08:25 | XMS_ITS | Encounter Summary ---
Author Organization [facility] Address [address] [place] [address] Care Team Providers Care Astro Technician Name Role Phone Unavailable Primary Care Provider Unavailabl e Encounter Details Date Type Department Care Team (Late st Contact Info) Description 03/09/1998 Outpatient Historical HIS MD Jose PRITCHARD, Keith Conroy MD [facility] S [facility] [address] [place] [address] Social History Tobacco Use Types Packs/Day Years Used Date Smoking Tobacco: Never Assessed Comments Unknown Sex and Gender Information Value Date Recorded Sex Assigned at Not on file Legal Sex Female 3:09 AM AERONAUTICAL ENGINEERING TECHNOLOGIST Gender Identity Not on file Sexual Orientation Not on file documented as of this encounter Plan of Treatment Not on file documented as of this encounter Visit Diagnoses Not on filedocumented in this encounter
--- OUTSIDE RECORDS SUMMARY | 2024-11-21 08:25 | XMS_ITS | Encounter Summary ---
Author Organization [facility] Address [address] [place] [address] Care Team Providers Care Packing Room Inspector Name Role Phone Unavailable Primary Care Provider Unavailabl e Encounter Details Date Type Department Care Team (Late st Contact Info) Description 07/26/1999 Outpatient Historical HIS MD Jose PRITCHARD, Keith Conroy MD [facility] S [facility] [address] [place] [address] Social History Tobacco Use Types Packs/Day Years Used Date Smoking Tobacco: Never Assessed Comments Unknown Sex and Gender Information Value Date Recorded Sex Assigned at Not on file Legal Sex Female 3:09 AM BOARD CERTIFIED MUSIC THERAPIST Gender Identity Not on file Sexual Orientation Not on file documented as of this encounter Plan of Treatment Not on file documented as of this encounter Visit Diagnoses Not on filedocumented in this encounter
--- OUTSIDE RECORDS SUMMARY | 2024-11-21 08:25 | XMS_ITS | Encounter Summary ---
Author Organization [facility] Address [address] [place] [address] [place] [address] Care Team Providers Care Front End Engineer Name Role Phone Nathalia Tinsley MD Primary Care Provider [phone] Encounter Details Date Type Department Care Team (Late st Contact Info) Description 08/28/2019 Lab Requisition [facility] D[facility] Lab [address] [facility], [place] [id number] Eboni Jacobsen DO [address] [facility] [address] [place] [address] Social History Tobacco Use Types Packs/Day Years Used Date Smoking Tobacco: Never Assessed Comments Unknown Sex and Gender Information Value Date Recorded Sex Assigned at Not on file Legal Sex Female 6:20 PM SUPPLY CHAIN TECH Gender Identity Not on file Sexual Orientation Not on file documented as of this encounter Plan of Treatment Not on file documented as of this encounter Procedures Procedure Name Priority Date/Time Associated Diagnosis Comments DERMATOPATHOLOGY Routine 08/27/2019 12:0 0 AM CDT documented in this encounter Results * DERMATOPATHOLOGY (08/27/2019 12:00 AM CDT) Case Report Dermatopathology Report Case: [id number] Authorizing Provider: Eboni Jacobsen DO Collected: 08/27/2019 12:00 AM Ordering Location: [facility] DermPath Lab Received: 08/28/2019 05:49 AM Pathologist: Aamir Sanchez MD Specimen: Skin, right upper arm 0 7:14 PM CDT DERMATOPATHOLOGY LABORATORY Final Diagnosis Specimen A. SKIN, right upper arm: LARGE CELL ACANTHOMA (D23.9) 0 7:14 PM CDT DERMATOPATHOLOGY LABORATORY at 1914 CDT Clinical History Nevus R/O atypia. 0 7:14 PM CDT DERMATOPATHOLOGY LABORATORY Gross Description Specimen A: Received is one formalin filled container labeled with the patient's name and designated right upper arm. The specimen consists of a shave measuring [id number]. Jar 0. 0 7:14 PM CDT DERMATOPATHOLOGY LABORATORY Microscopic Description Specimen A. SKIN, right upper arm: Sections show compact orthokeratosis with acanthosis composed of slightly larger keratinocytes with basal layer hyperpigmentation. 0 7:14 PM CDT DERMATOPATHOLOGY LABORATORY Disclaimer An external and internal positive and negative controls are appropriate for the histochemical, immunohistochemical and immunofluorescence stain(s) in this case (if any), except where stated explicitly. The performance characteristics of the stain(s) cited in this report were developed and its performance characteristic determined by the Dermatopathology Laboratory at [facility], directed by Dr. Madie Sanchez. These tests need not be, and therefore are not, approved by the [place] Food and Drug Administration. The tests are used for clinical purposes. Billing Codes Specimen Charges Stain Charges 04198 1 0 7:14 PM CDT DERMATOPATHOLOGY LABORATORY Embedded Images 0 7:14 PM CDT DERMATOPATHOLOGY LABORATORY Pathology/Cytolog y TISSUE SPECIMEN FROM SKIN / Unknown 08/27/2019 08/28/2019 5:49 AM CDT us Eboni Jacobsen DO LAB - PATHOLOGY/CYTOLOGY ORDERABLES Final Result DERMATOPATHOLOGY LABORATORY [facility] - Department of Dermatology [facility]/[address] [phone] documented in this encounter Visit Diagnoses Not on filedocumented in this encounter Care Teams Front End Engineer Relationship Specialty Start Date End Date Nathalia Tinsley MD [address] [place] [address] PCP - General 01/21/22 documented as of this encounter
--- OUTSIDE RECORDS SUMMARY | 2024-11-21 08:25 | XMS_ITS | Encounter Summary ---
Author Organization [facility] Address [address] [place] [address] Care Team Providers Care Etl Programmer Name Role Phone Unavailable Primary Care Provider Unavailabl e Encounter Details Date Type Department Care Team (Late st Contact Info) Description 09/28/1998 Outpatient Historical HIS MD Jose PRITCHARD, Keith Conroy MD [facility] S [facility] [address] [place] [address] Social History Tobacco Use Types Packs/Day Years Used Date Smoking Tobacco: Never Assessed Comments Unknown Sex and Gender Information Value Date Recorded Sex Assigned at Not on file Legal Sex Female 3:09 AM OILER AND GREASER Gender Identity Not on file Sexual Orientation Not on file documented as of this encounter Plan of Treatment Not on file documented as of this encounter Visit Diagnoses Not on filedocumented in this encounter
--- OUTSIDE RECORDS SUMMARY | 2024-11-21 08:25 | XMS_ITS | Encounter Summary ---
Author Organization [facility] Address [address] [place] [address] Care Team Providers Care Tanker Service Attendant Name Role Phone Unavailable Primary Care Provider Unavailabl e Encounter Details Date Type Department Care Team (Late st Contact Info) Description 10/10/1998 Outpatient Historical HIS MD Jose PRITCHARD, Keith Conroy MD [facility] S [facility] [address] [place] [address] Social History Tobacco Use Types Packs/Day Years Used Date Smoking Tobacco: Never Assessed Comments Unknown Sex and Gender Information Value Date Recorded Sex Assigned at Not on file Legal Sex Female 3:09 AM COUNTRY PRINTER APPRENTICE Gender Identity Not on file Sexual Orientation Not on file documented as of this encounter Plan of Treatment Not on file documented as of this encounter Visit Diagnoses Not on filedocumented in this encounter
--- OUTSIDE RECORDS SUMMARY | 2024-11-21 08:25 | XMS_ITS | Encounter Summary ---
Author Organization [facility] Address [address] [place] [address] Care Team Providers Care Tunnel Kiln Operator Name Role Phone Unavailable Primary Care Provider Unavailabl e Encounter Details Date Type Department Care Team (Late st Contact Info) Description 10/08/1998 Outpatient Historical HIS MD Jose PRITCHARD, Keith Conroy MD [facility] S [facility] [address] [place] [address] Social History Tobacco Use Types Packs/Day Years Used Date Smoking Tobacco: Never Assessed Comments Unknown Sex and Gender Information Value Date Recorded Sex Assigned at Not on file Legal Sex Female 3:09 AM PRINTER 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
--- OUTSIDE RECORDS SUMMARY | 2024-11-21 08:25 | XMS_ITS | Encounter Summary ---
Author Organization [facility] Address [address] [place] [address] Care Team Providers Care Clothespin Drier Operator Name Role Phone Unavailable Primary Care Provider Unavailabl e Encounter Details Date Type Department Care Team (Late st Contact Info) Description 09/14/1998 Outpatient Historical HIS MD Jose PRITCHARD, Keith Conroy MD [facility] S [facility] [address] [place] [address] Social History Tobacco Use Types Packs/Day Years Used Date Smoking Tobacco: Never Assessed Comments Unknown Sex and Gender Information Value Date Recorded Sex Assigned at Not on file Legal Sex Female 3:09 AM TEACHER HOME THERAPY Gender Identity Not on file Sexual Orientation Not on file documented as of this encounter Plan of Treatment Not on file documented as of this encounter Visit Diagnoses Not on filedocumented in this encounter
--- OUTSIDE RECORDS SUMMARY | 2024-11-21 08:25 | XMS_ITS | Encounter Summary ---
Author Organization [facility] Address [address] [place] [address] Care Team Providers Care Supervisor Grounds Name Role Phone Unavailable Primary Care Provider Unavailabl e Encounter Details Date Type Department Care Team (Late st Contact Info) Description 07/09/1999 Outpatient Historical HIS MD Jose PRITCHARD, Keith Conroy MD [facility] S [facility] [address] [place] [address] Social History Tobacco Use Types Packs/Day Years Used Date Smoking Tobacco: Never Assessed Comments Unknown Sex and Gender Information Value Date Recorded Sex Assigned at Not on file Legal Sex Female 3:09 AM ENGINEERING CLERK Gender Identity Not on file Sexual Orientation Not on file documented as of this encounter Plan of Treatment Not on file documented as of this encounter Visit Diagnoses Not on filedocumented in this encounter
--- OUTSIDE RECORDS SUMMARY | 2024-11-21 08:25 | XMS_ITS | Encounter Summary ---
Author Organization [facility] Address [address] [place] [address] Care Team Providers Care Public Relations Account Supervisor Name Role Phone Unavailable Primary Care Provider Unavailabl e Encounter Details Date Type Department Care Team (Late st Contact Info) Description 03/30/1998 Outpatient Historical HIS MD Jose PRITCHARD, Keith Conroy MD [facility] S [facility] [address] [place] [address] Social History Tobacco Use Types Packs/Day Years Used Date Smoking Tobacco: Never Assessed Comments Unknown Sex and Gender Information Value Date Recorded Sex Assigned at Not on file Legal Sex Female 3:09 AM LEGISLATORS Gender Identity Not on file Sexual Orientation Not on file documented as of this encounter Plan of Treatment Not on file documented as of this encounter Visit Diagnoses Not on filedocumented in this encounter
--- OUTSIDE RECORDS SUMMARY | 2024-11-21 08:25 | XMS_ITS | Encounter Summary ---
Author Organization [facility] Address [address] [place] [address] Care Team Providers Care Master Of Ceremonies Name Role Phone Unavailable Primary Care Provider Unavailabl e Encounter Details Date Type Department Care Team (Late st Contact Info) Description 11/23/1998 Outpatient Historical HIS MD Jose PRITCHARD, Keith Conroy MD [facility] S [facility] [address] [place] [address] Social History Tobacco Use Types Packs/Day Years Used Date Smoking Tobacco: Never Assessed Comments Unknown Sex and Gender Information Value Date Recorded Sex Assigned at Not on file Legal Sex Female 3:09 AM HOOP PUNCHER Gender Identity Not on file Sexual Orientation Not on file documented as of this encounter Plan of Treatment Not on file documented as of this encounter Visit Diagnoses Not on filedocumented in this encounter
--- OUTSIDE RECORDS SUMMARY | 2024-11-21 08:25 | XMS_ITS | Encounter Summary ---
Author Organization [facility] Address [address] [place] [address] Care Team Providers Care Dental Technician Instructor Name Role Phone Unavailable Primary Care Provider Unavailabl e Encounter Details Date Type Department Care Team (Late st Contact Info) Description 07/28/1999 Outpatient Historical HIS MD Jose RPITCHARD, Keith Conroy MD [facility] S [facility] [address] [place] [address] Social History Tobacco Use Types Packs/Day Years Used Date Smoking Tobacco: Never Assessed Comments Unknown Sex and Gender Information Value Date Recorded Sex Assigned at Not on file Legal Sex Female 3:09 AM INSPECTOR WATCH PARTS Gender Identity Not on file Sexual Orientation Not on file documented as of this encounter Plan of Treatment Not on file documented as of this encounter Visit Diagnoses Not on filedocumented in this encounter
--- OUTSIDE RECORDS SUMMARY | 2024-11-21 08:25 | XMS_ITS | Encounter Summary ---
Author Organization [facility] Address [address] [place] [address] Care Team Providers Care Compliance Project Manager Name Role Phone Unavailable Primary Care Provider Unavailabl e Encounter Details Date Type Department Care Team (Late st Contact Info) Description 06/22/1999 Outpatient Historical HIS MD Jose PRITCHARD, Keith Conroy MD [facility] S [facility] [place] [address] [place] [address] Social History Tobacco Use Types Packs/Day Years Used Date Smoking Tobacco: Never Assessed Comments Unknown Sex and Gender Information Value Date Recorded Sex Assigned at Not on file Legal Sex Female 3:09 AM PLAYGROUND AIDE Gender Identity Not on file Sexual Orientation Not on file documented as of this encounter Plan of Treatment Not on file documented as of this encounter Visit Diagnoses Not on filedocumented in this encounter
--- OUTSIDE RECORDS SUMMARY | 2024-11-21 08:25 | XMS_ITS | Encounter Summary ---
Author Organization [facility] Address [address] [place] [address] Care Team Providers Care Biodiesel Product Manager Name Role Phone Unavailable Primary Care Provider Unavailabl e Encounter Details Date Type Department Care Team (Late st Contact Info) Description 11/23/1998 Outpatient Historical HIS MD Jose PRITCHARD, Keith Conroy MD [facility] S [facility] [address] [place] [address] Social History Tobacco Use Types Packs/Day Years Used Date Smoking Tobacco: Never Assessed Comments Unknown Sex and Gender Information Value Date Recorded Sex Assigned at Not on file Legal Sex Female 3:09 AM MEDIA 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
--- OUTSIDE RECORDS SUMMARY | 2024-11-21 08:25 | XMS_ITS | Encounter Summary ---
Author Organization [facility] Address [address] [place] [address] Care Team Providers Care Carport Erector Name Role Phone Unavailable Primary Care Provider Unavailabl e Encounter Details Date Type Department Care Team (Late st Contact Info) Description 06/21/1999 Outpatient Historical HIS MD Jose PRITCHARD, Keith Conroy MD [facility] S [facility] [address] [place] [address] Social History Tobacco Use Types Packs/Day Years Used Date Smoking Tobacco: Never Assessed Comments Unknown Sex and Gender Information Value Date Recorded Sex Assigned at Not on file Legal Sex Female 3:09 AM SPIRAL WINDING MACHINE HELPER Gender Identity Not on file Sexual Orientation Not on file documented as of this encounter Plan of Treatment Not on file documented as of this encounter Visit Diagnoses Not on filedocumented in this encounter
--- OUTSIDE RECORDS SUMMARY | 2024-11-21 08:25 | XMS_ITS | Encounter Summary ---
Author Organization [facility] Address [address] [place] [address] Care Team Providers Care Spareribs Trimmer Name Role Phone Unavailable Primary Care Provider Unavailabl e Encounter Details Date Type Department Care Team (Late st Contact Info) Description 03/19/1998 Outpatient Historical HIS MD Jose PRITCHARD, Keith Conroy MD [facility] S [facility] [address] [place] [address] Social History Tobacco Use Types Packs/Day Years Used Date Smoking Tobacco: Never Assessed Comments Unknown Sex and Gender Information Value Date Recorded Sex Assigned at Not on file Legal Sex Female 3:09 AM GROUND DEFENCE OFFICER Gender Identity Not on file Sexual Orientation Not on file documented as of this encounter Plan of Treatment Not on file documented as of this encounter Visit Diagnoses Not on filedocumented in this encounter
--- OUTSIDE RECORDS SUMMARY | 2024-11-21 08:25 | XMS_ITS | Encounter Summary ---
Author Organization [facility] Address [address] [place] [address] Care Team Providers Care Dual Rate Dealer Name Role Phone Unavailable Primary Care Provider Unavailabl e Encounter Details Date Type Department Care Team (Late st Contact Info) Description 09/12/1998 Outpatient Historical HIS MD Jose PRITCHARD, Keith Conroy MD [facility] S [facility] [address] [place] [address] Social History Tobacco Use Types Packs/Day Years Used Date Smoking Tobacco: Never Assessed Comments Unknown Sex and Gender Information Value Date Recorded Sex Assigned at Not on file Legal Sex Female 3:09 AM ANIMAL HUSBANDRY MANAGER Gender Identity Not on file Sexual Orientation Not on file documented as of this encounter Plan of Treatment Not on file documented as of this encounter Visit Diagnoses Not on filedocumented in this encounter
--- OUTSIDE RECORDS SUMMARY | 2024-11-21 08:25 | XMS_ITS | Encounter Summary ---
Author Organization [facility] Address [address] [place] [address] Care Team Providers Care Dining Service Inspector Name Role Phone Unavailable Primary Care Provider Unavailabl e Encounter Details Date Type Department Care Team (Late st Contact Info) Description 10/09/1998 Outpatient Historical HIS MD Jose PRITCHARD, Keith Conroy MD [facility] S [facility] [address] [place] [address] Social History Tobacco Use Types Packs/Day Years Used Date Smoking Tobacco: Never Assessed Comments Unknown Sex and Gender Information Value Date Recorded Sex Assigned at Not on file Legal Sex Female 3:09 AM STUDIO TECHNICIAN Gender Identity Not on file Sexual Orientation Not on file documented as of this encounter Plan of Treatment Not on file documented as of this encounter Visit Diagnoses Not on filedocumented in this encounter
--- OUTSIDE RECORDS SUMMARY | 2024-11-21 08:25 | XMS_ITS | Encounter Summary ---
Author Organization [facility] Address [address] [place] [address] Care Team Providers Care Bulk Plant Supervisor Name Role Phone Unavailable Primary Care Provider Unavailabl e Encounter Details Date Type Department Care Team (Late st Contact Info) Description 03/25/1998 Outpatient Historical HIS MD Jose PRITCHARD, Keith Conroy MD [facility] S [facility] [address] [place] [address] Social History Tobacco Use Types Packs/Day Years Used Date Smoking Tobacco: Never Assessed Comments Unknown Sex and Gender Information Value Date Recorded Sex Assigned at Not on file Legal Sex Female 3:09 AM MANAGER FAMILY Gender Identity Not on file Sexual Orientation Not on file documented as of this encounter Plan of Treatment Not on file documented as of this encounter Visit Diagnoses Not on filedocumented in this encounter
--- OUTSIDE RECORDS SUMMARY | 2024-11-21 08:25 | XMS_ITS | Encounter Summary ---
Author Organization [facility] Address [address] [place] [address] Care Team Providers Care Milling Planer Operator Name Role Phone Unavailable Primary Care Provider Unavailabl e Encounter Details Date Type Department Care Team (Late st Contact Info) Description 09/01/1998 Outpatient Historical HIS MD Jose PRITCHARD, Keith Conroy MD [facility] S [facility] [address] [place] [address] Social History Tobacco Use Types Packs/Day Years Used Date Smoking Tobacco: Never Assessed Comments Unknown Sex and Gender Information Value Date Recorded Sex Assigned at Not on file Legal Sex Female 3:09 AM LEAD ATHLETE Gender Identity Not on file Sexual Orientation Not on file documented as of this encounter Plan of Treatment Not on file documented as of this encounter Visit Diagnoses Not on filedocumented in this encounter
--- OUTSIDE RECORDS SUMMARY | 2024-11-21 08:25 | XMS_ITS | Encounter Summary ---
Author Organization [facility] Address [address] [place] [address] Care Team Providers Care Nutritionists Name Role Phone Unavailable Primary Care Provider Unavailabl e Encounter Details Date Type Department Care Team (Late st Contact Info) Description 09/01/1998 Outpatient Historical HIS MD Jose PRITCHARD, Keith Conroy MD [facility] S [facility] [address] [place] [address] Social History Tobacco Use Types Packs/Day Years Used Date Smoking Tobacco: Never Assessed Comments Unknown Sex and Gender Information Value Date Recorded Sex Assigned at Not on file Legal Sex Female 3:09 AM CUSTOMER CARE AGENT Gender Identity Not on file Sexual Orientation Not on file documented as of this encounter Plan of Treatment Not on file documented as of this encounter Visit Diagnoses Not on filedocumented in this encounter
--- OUTSIDE RECORDS SUMMARY | 2024-11-21 08:25 | XMS_ITS | Encounter Summary ---
Author Organization [facility] Address [address] [place] [address] Care Team Providers Care Statistical Secretary Name Role Phone Unavailable Primary Care Provider Unavailabl e Encounter Details Date Type Department Care Team (Late st Contact Info) Description 07/24/1999 Outpatient Historical HIS MD Jose PRITCHARD, Keith Conroy MD [facility] S [facility] [address] [place] [address] Social History Tobacco Use Types Packs/Day Years Used Date Smoking Tobacco: Never Assessed Comments Unknown Sex and Gender Information Value Date Recorded Sex Assigned at Not on file Legal Sex Female 3:09 AM KNIFE EDGER Gender Identity Not on file Sexual Orientation Not on file documented as of this encounter Plan of Treatment Not on file documented as of this encounter Visit Diagnoses Not on filedocumented in this encounter
--- OUTSIDE RECORDS SUMMARY | 2024-11-21 08:25 | XMS_ITS | Encounter Summary ---
Author Organization [facility] Address [address] [place] [address] Care Team Providers Care Nursing Services Manager Name Role Phone Unavailable Primary Care Provider Unavailabl e Encounter Details Date Type Department Care Team (Late st Contact Info) Description 10/06/1998 Outpatient Historical HIS MD Jose PRITCHARD, Keith Conroy MD [facility] S [facility] [address] [place] [address] Social History Tobacco Use Types Packs/Day Years Used Date Smoking Tobacco: Never Assessed Comments Unknown Sex and Gender Information Value Date Recorded Sex Assigned at Not on file Legal Sex Female 3:09 AM PAPER BALER Gender Identity Not on file Sexual Orientation Not on file documented as of this encounter Plan of Treatment Not on file documented as of this encounter Visit Diagnoses Not on filedocumented in this encounter
--- OUTSIDE RECORDS SUMMARY | 2024-11-21 08:25 | XMS_ITS | Encounter Summary ---
Author Organization [facility] Address [address] [place] [address] Care Team Providers Care Reproduction Machine Loader Name Role Phone Unavailable Primary Care Provider Unavailabl e Encounter Details Date Type Department Care Team (Late st Contact Info) Description 08/15/1998 Outpatient Historical HIS MD Jose PRITCHARD, Keith Conroy MD [facility] S [facility] [place] [address] [place] [address] Social History Tobacco Use Types Packs/Day Years Used Date Smoking Tobacco: Never Assessed Comments Unknown Sex and Gender Information Value Date Recorded Sex Assigned at Not on file Legal Sex Female 3:09 AM PROGRESS MAN Gender Identity Not on file Sexual Orientation Not on file documented as of this encounter Plan of Treatment Not on file documented as of this encounter Visit Diagnoses Not on filedocumented in this encounter
--- OUTSIDE RECORDS SUMMARY | 2024-11-21 08:25 | XMS_ITS | Clinical Summary ---
Author Organization [facility] Address [address] [place] [address] Care Team Providers Care Claim Administrator Name Role Phone Nathalia Tinsley MD Primary Care Provider [phone] Source Comments [facility],non-owned Affiliates and Associated Physician Practices is amultiple site organization consisting of ambulatory clinics and hospital sitesin [place], [place], [place] and [place]. This disclosure is being madepursuant to the Care Everywhere program and may not contain all information available regarding this patient. Last updated 17.[facility] Allergies Active Allergy Reactions Criticality Noted Date Comments Allergy Rash Medium 02/21/2022 Sulfamethoxazole Rash Medium 02/21/2022 Trimethoprim Rash Medium 02/21/2022 Medications * Be aware that medications may not be up to date on this document. Alwaysverify current medications with the patient. atorvastatin (Lipitor) 10 MG tablet Take 1 (one) tablet by mouth once daily 2 Active carvedilol (Coreg) 12.5 MG tablet Take 1 (one) tablet by mouth 2 times daily with morning and evening meal 2 Active MIR CONTOUR NEXT TEST test strip Use 1 (one) strip once 2 Active hydroCHLOROthi azide (Hydrodiuril) 25 MG tablet Take 1 (one) tablet by mouth once daily 2 Active Lancets (ONETOUCH DELICA PLUS 33G EXTRA FINE LANCET) Use 1 Each as directed 2 Active losartan (Cozaar) 100 MG tablet Take 1 (one) tablet by mouth once daily 2 Active golimumab (Simponi Aria) 50 MG/4ML injection 4 mL by Intravenous route Every 8 Weeks 2 Active aspirin EC (Ecotrin) 81 MG tablet Take 1 (one) tablet by mouth once daily Active predniSONE (Deltasone) 5 MG tablet Take 1 (one) tablet by mouth as needed 3 Active saline nasal spray ([place]; Baby Green) 0.65 % nasal spray Bude 2 (two) sprays into each nostril 4 times daily 30 mL 1 3 Active amLODIPine (Norvasc) 10 MG tablet Take 1 (one) tablet by mouth once daily 3 Active Mounjaro 15 MG/0.5ML injection Inject 15 (fifteen) mg subcutaneously every 7 days 3 Active leflunomide (Arava) 20 MG tablet Take 1 (one) tablet by mouth once daily Active hydroxychloroq uine (Plaquenil) 200 MG tablet Take 1 (one) tablet by mouth once daily Active Immunizations Immunization Administration Dates Next Due INFLUENZA VACCINE, TRIV. (FL UZONE; FLULAVAL; FLUARIX; AFLURIA TRIVALENT; 6MO+), 0.5 ML (IIV3) 11/15/2016 Pneumococcal Pcv13 Conj 02/05/2020 TDAP, HISTORIC VACCINE 01/04/2022 Social History Tobacco Use Types Packs/Day Years Used Date Smoking Tobacco: Never Smokeless Tobacco: Never Tobacco Cessation:Counseling Given: Not Answered Alcohol Use Standard Drinks/Week Comments Never 0 (1 standard drink = 0.6 oz pur e alcohol) AUDIT-C Answer Date Recorded Q1: How often do you have a drink containing alcohol? Never 09/07/2022 Q2: How many drinks containi ng alcohol do you have on a typical day when you are drinking? Patient does not drink 3 Frequency of Binge Drinking Not on file 03/2022 Comments No Sex and Gender Information Value Date Recorded Sex Assigned at Not on file Legal Sex Female 6:20 PM CLASSER Gender Identity Not on file Sexual Orientation Not on file Last Filed Vital Signs Vital Sign Reading Time Taken Comments Blood Pressure 124/83 09/14/2022 8:18 AM CDT Pulse 74 09/14/2022 8:18 AM CDT Temperature 36.7 C (98 F) 09/07/2022 12:30 PM CDT Respiratory Rate 8 09/07/2022 1:15 PM CDT Oxygen Saturation 94% 09/07/2022 1:15 PM CDT Inhaled Oxygen Concentration 40% 09/07/2022 1 1:25 AM CDT Weight 92.5 kg (204 lb) 09/14/2022 8:18 AM CDT Height 162.6 cm (5' 4) 10/02/2023 12:31 PM CDT Body Mass Index 35.02 09/14/2022 8:18 AM CDT Plan of Treatment Health Maintenance Due Date Last Done Comments COLOGUARD (AGES 45-75) - COL ON CA SCREENING 1971 COLON MONITORING 1971 COLONOSCOPY - COLON CA SCREENING 1971 CT COLONOGRAPHY - COLON CA SCREENING 1971 Colorectal Cancer Screening 1971 FIT - COLON CA SCREENING 1971 FLEX SIG - COLON CA SCREENING 1971 MAMMOGRAM 1971 HIV SCREENING 1986 HEPATITIS C SCREENING 01/11/1989 HEPATITIS B VACCINE (1 of 3 - 19+ 3-dose series) 1990 ZOSTER VACCINE (1 of 2) 2021 PNEUMOCOCCAL VACCINE 50+ (2 of 2 - PCV20 or PCV21) 02/04/2021 02/05/2020 DEPRESSION SCREENING 02/07/2024 COVID-19 VACCINE (1 - 2023-2 5 season) 2024 INFLUENZA VACCINE (#1) 2024 11/15/2016 DTAP/TDAP/TD VACCINES (2 - T d or Tdap) 01/05/2032 01/04/2022 HIB VACCINE Aged Out No longer eligi ble based on patient's age to complete this topic HPV VACCINE Aged Out No longer eligi ble based on patient's age to complete this topic MENINGOCOCCAL (Group B) VACC INE SHARED DECISION-MAKING Aged Out No longer eligibl e based on patient's age to complete this topic MENINGOCOCCAL GROUPS A/C/Y/W VACCINE Aged Out No longer eligible b ased on patient's age to complete this topic Insurance ANTHEM ANTHEM * Guarantor: [id number] BROOM Account Type Relation to Patient Date of Phone Billing Address Workers Comp Employer Advance Directives Documents on File Type Date Recorded Patient Addictions Therapist Expl anation Adv Directive/Living Will/POA 09/08/2022 10:54 AM Care Teams Claim Administrator Relationship Specialty Start Date End Date Nathalia Tinsley MD [address] [place] [id number] PCP - General 01/21/22
--- OUTSIDE RECORDS SUMMARY | 2024-11-21 08:25 | XMS_ITS | Clinical Summary ---
Author Organization [facility] [address] Address [address] [place] [address] Care Team Providers Care Porter Bath Name Role Phone Nathalia Tinsley MD Primary Care Provider Allergies Active Allergy Reactions Criticality Noted Date Comments Sulfa (Sulfonamide Antibiotics) Rash Medium Sulfamethoxazole Rash Medium Trimethoprim Rash Medium Medications hydroxychloroqu ine (PLAQUENIL) 200 mg tablet take 1 tablet by oral route every day 0 0 09/29/2015 Active leflunomide (ARAVA) 20 mg tabletIndicatio ns:Rheumatoid Arthritis 03/05/2018 Active predniSONE (DELTASONE) 5 mg tablet 03/13/2021 Active atorvastatin (LIPITOR) 10 mg tablet 07/08/2021 Active golimumab (SIMPONI ARIA IV) Infuse into a venous catheter every 8 (eight) weeks Active carvediloL (COREG) 12.5 mg tablet 02/23/2022 Active Mounjaro 15 mg/0.5 mL pen injector Inject 0.5 mL (15 mg total) under the skin once a week 12/17/2022 Active amLODIPine (NORVASC) 10 mg tabletIndicatio ns:Ankle edema, bilateral Take 1 tablet (10 mg total) by mouth daily 90 tablet 1 11/02/2023 Active hydroCHLOROthia zide (HYDRODIURIL) 25 mg tablet TAKE ONE TABLET BY MOUTH DAILY 90 tablet 2 07/19/2024 Active losartan (COZAAR) 100 mg tablet TAKE ONE TABLET BY MOUTH DAILY 90 tablet 2 07/19/2024 Active furosemide (LASIX) 20 mg tabletIndicatio ns:Localized edema Take 1 tablet (20 mg total) by mouth daily as needed (swelling) 30 tablet 1 11/13/2024 Active Active Problems Problem Noted Date Diagnosed Date SOB (shortness of breath) 11/13/2024 Medication side effects 04/05/2021 Paresthesias 02/13/2020 Mixed diabetic hyperlipidemi a associated with type 2 diabetes mellitus (CMS/HCC) 02/13/2020 Nonrheumatic aortic valve insufficiency 05/04/19 19 FABRICIO-inhibitor cough 05/03/2018 H/O syncope 04/04/2018 Localized edema 04/04/2018 Obesity (BMI 35.0-39.9 without comorbidity) 12/08 Varicose veins of lower extremity 06/08/2016 Overview (07/01/2016): Varicose veins of both lower extremities with pain Syncope and collapse 06/08/2016 Overview (07/01/2016): Near syncope Hypertension associated with diabetes 09/29/2015 Overview (05/12/2016): HTN (hypertension), benign Vasodepressor syncope 09/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 Overview (05/13/2016): Vasodepressor syncope Rheumatoid arthritis 06/05/2010 Overview (05/18/2017): Description: Rheumatoid Arthritis Encounters Date Type Department Care Team Description 11/18/2024 Telephone [facility] [address] [place] [address] [address] [place] [phone] Sharif Anguiano MD 11/15/2024 Orders Only [facility] Cardiology [address] [place] [address] [address] [place] [phone] Sharif Anguiano MD SOB (shortness of breath) 11/13/2024 10:30 AM CDT Office Visit [facility] Cardiology [address] [place] [address] [address] [place] [phone] Sharif Anguiano MD Mixed diabetic hyperlipidemia associated with type 2 diabetes mellitus (CMS/HCC) (HCC) (Primary Dx); Hypertension associated with diabetes (HCC); Localized edema; SOB (shortness of breath); Nonrheumatic aortic valve insufficiency 11/13/2024 Telephone [facility] [address] [place] [address] Sharif Anguiano MD from Last 3 Months Immunizations Immunization Administration Dates Next Due PPD TEST 10/27/2011 Surgical History Surgery Date Site/Laterality Comments HYSTERECTOMY 2011 Hysterectomy TONSILLECTOMY tonsillectomy HYSTERECTOMY Hysterectomy REDUCTION MAMMOPLASTY Breast reduction Medical History Medical History Date Comments Hx Other Medical RA Hypertension Hypertension Hx Other Medical Vasodepressor/v asovagal syncope Rheumatoid arthritis (HCC) Rheum atoid arthritis Family History Medical History Relation Name Comments Diabetes Father Diabetes mellit us; Hypertension Father Hypertension; Other Father No history of H eart disease; Cancer Other 1 Family history of Cancer; Hypertension Other 2 Family history of Hypertension; Stroke Other 3 Family history of Stroke; Relation Name Status Comments Father Other 1 Other 2 Other 3 Social History Tobacco Use Types Packs/Day Years Used Date Smoking Tobacco: Never Smokeless Tobacco: Never Alcohol Use Standard Drinks/Week Comments Yes 0 (1 standard drink = 0.6 oz pur e alcohol) Comments Unknown Sex and Gender Information Value Date Recorded Sex Assigned at Not on file Legal Sex Female 10:47 AM INDOOR PLANT TECHNICIAN Gender Identity Not on file Sexual Orientation Not on file 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 Not on file Not on file Obstetrics History Last Filed Vital Signs Vital Sign Reading Time Taken Comments Blood Pressure 112/64 11/13/2024 10:29 AM CDT Pulse 61 11/13/2024 10:29 AM CDT Temperature - - Respiratory Rate 16 04/04/2018 3:38 PM INDOOR PLANT TECHNICIAN Oxygen Saturation 97% 11/13/2024 10:29 AM CDT Inhaled Oxygen Concentration - - Weight 84.8 kg (187 lb) 11/13/2024 10:29 AM CDT Height 162.6 cm (5' 4) 11/13/2024 10:29 AM CDT Body Mass Index 32.1 11/13/2024 10:29 AM CDT Plan of Treatment Health Maintenance Due Date Last Done Comments Albumin Creatinine Ratio, Urine 1971 Breast Cancer Screening-Mammogram 1971 Colon Cancer Screening-Colonoscopy 1971 Depression Screening 1971 Hemoglobin A1C 1971 Hepatitis C Screening 1971 Dilated Eye Exam 1971 Foot Exam 1971 Hepatitis B Screening 1989 Regular Well Visit/Exam 18-64 1989 Zoster Vaccine (1 of 2) 1990 eGFR 08/19/2019 08/18/2018 Pneumococcal vaccine <65 (2 of 2 - PPSV23, PCV20, or PCV21) 04/01/2020 02/05/2020 Influenza Vaccine (#1) 2024 11/15/2016 Lipid Panel 03/15/2025 03/15/2024, 02/2 02/2022, 02/04/2021, Additional history exists DTaP/Tdap/Td Vaccine (2 - Td or Tdap) 01/05/2032 01/04/2022 Procedures Procedure Name Priority Date/Time Associated Diagnosis Comments POCT LIPID PANEL Routine 03/15/2024 2:49 PM INDOOR PLANT TECHNICIAN Mixed diabetic hyperlipidemia associated with type 2 diabetes mellitus (CMS/HCC) (HCC) BASIC METABOLIC PANEL Routine 08/18/2018 7:01 AM CDT from Last 3 Months or Most Recently Relevant to Health Maintenance Results * POCT lipid panel (03/15/2024 2:49 PM INDOOR PLANT TECHNICIAN) Cholesterol, POC 143 mg/dL HDL, POC 45 mg/dL Triglycerides, POC 98 mg/dL LDL Cholesterol POC 78 mg/dL Chol/HDL Ratio, POC 3.2 Non-HDL Cholesterol, POC 98 mg/dL Cholesterol Total, POC 143 mg/dL Capillary blood 03/15/2024 2 :49 PM INDOOR PLANT TECHNICIAN us Sharif Anguiano MD POINT OF CARE TEST ORDERA BLES Final Result * (ABNORMAL) Basic metabolic panel (08/18/2018 7:01 AM CDT) SCRIBED Sodium 3.9 3.5 - 5.3 mmol/L EXTERNAL LAB SCRIBED Potassium 137 135 - 146 mmol/L EXTERNAL LAB SCRIBED Chloride 102 98 - 110 mmol/L EXTERNAL LAB SCRIBED Carbon Dioxide 27 20 - 32 mmol/L EXTERNAL LAB SCRIBED Urea Nitrogen (BUN) 22 7 - 25 mg/dl EXTERNAL LAB SCRIBED Creatinine 1.07 0.50 - 1.10 mg/dl EXTERNAL LAB SCRIBED Glucose 126(A) 65 - 99 mg/dl EXTERNAL LAB SCRIBED Calcium 8.5(A) 8.6 - 10.2 mg/dl EXTERNAL LAB SCRIBED eGFR 62 60 - 100 EXTERNAL LAB Blood specimen (specimen) us Historical Provider LAB BLOOD ORDERABLES Edit ed Result - Final EXTERNAL LAB from Last 3 Months or Most Recently Relevant to Health Maintenance Insurance [employer] OOS [employer] [place] BLUE ACC CHOICE OOS [employer] Care Teams Porter Bath Relationship Specialty Start Date End Date Nathalia Tinsley MD [address] [place], [place] [id number] PCP - General 05/06/16
--- OUTSIDE RECORDS SUMMARY | 2024-11-21 08:25 | XMS_ITS | Encounter Summary ---
Author Organization [facility] Address [address] [place] [address] Care Team Providers Care Experiential Therapist Name Role Phone Unavailable Primary Care Provider Unavailabl e Encounter Details Date Type Department Care Team (Late st Contact Info) Description 08/11/1998 Outpatient Historical HIS MD Jose PRITCHARD, Keith Conroy MD [facility] [address] [facility] [address] [place] [address] Social History Tobacco Use Types Packs/Day Years Used Date Smoking Tobacco: Never Assessed Comments Unknown Sex and Gender Information Value Date Recorded Sex Assigned at Not on file Legal Sex Female 3:09 AM MITIGATION SUPERVISOR Gender Identity Not on file Sexual Orientation Not on file documented as of this encounter Plan of Treatment Not on file documented as of this encounter Visit Diagnoses Not on filedocumented in this encounter
--- OUTSIDE RECORDS SUMMARY | 2024-11-21 08:25 | XMS_ITS | Encounter Summary ---
Author Organization [facility] Address [address] [place] [address] Care Team Providers Care Director Money Name Role Phone Unavailable Primary Care Provider Unavailabl e Encounter Details Date Type Department Care Team (Late st Contact Info) Description 10/02/1998 Outpatient Historical HIS MD Jose PRITCHARD, Keith Conroy MD [facility] [address] [facility] [address] [place] [address] Social History Tobacco Use Types Packs/Day Years Used Date Smoking Tobacco: Never Assessed Comments Unknown Sex and Gender Information Value Date Recorded Sex Assigned at Not on file Legal Sex Female 3:09 AM SET UP TECHNICIAN Gender Identity Not on file Sexual Orientation Not on file documented as of this encounter Plan of Treatment Not on file documented as of this encounter Visit Diagnoses Not on filedocumented in this encounter
--- OUTSIDE RECORDS SUMMARY | 2024-11-21 08:25 | XMS_ITS | Encounter Summary ---
Author Organization [facility] Address [address] [place] [address] Care Team Providers Care Auto Service Representative Name Role Phone Unavailable Primary Care Provider Unavailabl e Encounter Details Date Type Department Care Team (Late st Contact Info) Description 08/14/1998 Outpatient Historical HIS MD Jose PRITCHARD, Keith Conroy MD [facility] [address] [facility] [address] [place] [address] Social History Tobacco Use Types Packs/Day Years Used Date Smoking Tobacco: Never Assessed Comments Unknown Sex and Gender Information Value Date Recorded Sex Assigned at Not on file Legal Sex Female 3:09 AM HOME COMFORT ADVISOR Gender Identity Not on file Sexual Orientation Not on file documented as of this encounter Plan of Treatment Not on file documented as of this encounter Visit Diagnoses Not on filedocumented in this encounter
--- OUTSIDE RECORDS SUMMARY | 2024-11-21 08:25 | XMS_ITS | Encounter Summary ---
Author Organization [facility] Address 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
--- OUTSIDE RECORDS SUMMARY | 2024-11-21 08:26 | XMS_ITS | Encounter Summary ---
Author Organization [facility] Address [address] [place] [address] Care Team Providers Care Rougher Operator Name Role Phone Unavailable Primary Care Provider Unavailabl e Encounter Details Date Type Department Care Team (Late st Contact Info) Description 09/11/1998 Outpatient Historical HIS MD Jose PRITCHARD, Keith Conroy MD [facility] [address] [facility] [address] [place] [address] Social History Tobacco Use Types Packs/Day Years Used Date Smoking Tobacco: Never Assessed Comments Unknown Sex and Gender Information Value Date Recorded Sex Assigned at Not on file Legal Sex Female 3:09 AM ALLOPATHIC DOCTOR Gender Identity Not on file Sexual Orientation Not on file documented as of this encounter Plan of Treatment Not on file documented as of this encounter Visit Diagnoses Not on filedocumented in this encounter
--- OUTSIDE RECORDS SUMMARY | 2024-11-21 08:26 | XMS_ITS | Encounter Summary ---
Author Organization [facility] Address [address] [place] [address] Care Team Providers Care Neurological Physiotherapist Name Role Phone Unavailable Primary Care Provider Unavailabl e Encounter Details Date Type Department Care Team (Late st Contact Info) Description 04/02/1998 Outpatient Historical HIS MD Jose PRITCHARD, Keith Conroy MD [facility] [address] [facility] [address] [place] [address] Social History Tobacco Use Types Packs/Day Years Used Date Smoking Tobacco: Never Assessed Comments Unknown Sex and Gender Information Value Date Recorded Sex Assigned at Not on file Legal Sex Female 3:09 AM DIRECTOR EQUIPMENT Gender Identity Not on file Sexual Orientation Not on file documented as of this encounter Plan of Treatment Not on file documented as of this encounter Visit Diagnoses Not on filedocumented in this encounter
--- OUTSIDE RECORDS SUMMARY | 2024-11-21 08:26 | XMS_ITS | Encounter Summary ---
Author Organization [facility] Address [address] [place] [address] Care Team Providers Care Battery Wrecker Operator Name Role Phone Unavailable Primary Care Provider Unavailabl e Encounter Details Date Type Department Care Team (Late st Contact Info) Description 09/10/1998 Outpatient Historical HIS MD Jose PRITCHARD, Keith Conroy MD [facility] S [facility] [address] [place] [address] Social History Tobacco Use Types Packs/Day Years Used Date Smoking Tobacco: Never Assessed Comments Unknown Sex and Gender Information Value Date Recorded Sex Assigned at Not on file Legal Sex Female 3:09 AM DREDGEMASTER Gender Identity Not on file Sexual Orientation Not on file documented as of this encounter Plan of Treatment Not on file documented as of this encounter Visit Diagnoses Not on filedocumented in this encounter
--- OUTSIDE RECORDS SUMMARY | 2024-11-21 08:26 | XMS_ITS | Encounter Summary ---
Author Organization [facility] Address 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
--- NOTE | 2024-11-21 13:13 | WPDPFTINT ---
PFT Procedure Performed PFT Procedure Performed Plethysmography (Lung Vol) Diffusing Cap (DLCO) Flow Vol Loop Spirometry w/o Bronchodil PFT Interpretation This is a pulmonary function test with spirometry, plethysmography and diffusing capacity. The test was performed and results interpreted in accordance with the 2019 and 2005 ATS/ERS Task Force guidelines respectively using the Global Lung Function Initiative-2012 reference equations. Patient demonstrated good effort and cooperation. Reproducibility criteria were met. The quality of the spirometry maneuver was Grade A. Findings: Spirometry: The contour the inspiratory and expiratory flow tracing are normal. The FVC is 2.91 L, 86% predicted. The FEV1 is 2.36 L, 87% predicted. The FEV1: FVC ratio is 81%. Plethysmography: The total lung capacity is 4.72 L, 93% predicted. The functional residual capacity is 1.99 L, 70% predicted. The residual volume is 1.57 L, 85% predicted. Diffusing capacity: The diffusing capacity unadjusted for hemoglobin and carboxyhemoglobin is 19.9, 89% predicted. The diffusing capacity adjusted for alveolar volume is 4.78, 105% predicted. Impression: The spirometry is normal without evidence of an obstructive abnormality. The lung volumes are normal. The diffusing capacity is normal. There are no prior studies for comparison
== END 2024-11-21 08:12 | disposition home or self-care (01) ==
LOC: ANHPFT 08:19
PROVIDERS: PCP Internal Medicine; Visit Provider Internal Medicine Cardiovascular Disease
DX: R06.02 Shortness of breath (principal)
CPT/HCPCS: 94375; 94726; 94729